=== PATIENT | male | born 1985 | race Caucasian/White ===

== ENCOUNTER 2016-05-18 20:44 | Emergency (ER) | payer OTHER ==
[~2016-05-18] VITALS: Ht 180.3 cm; Wt 148.2 kg
[~2016-05-18 20:44] MED LIST: ACET-1256 PO; [UNRECOGNIZED DRUG - CODE] PO
[2016-05-18 20:57] VITALS: Ht 180.3 cm; Wt 148.2 kg
[2016-05-18] MEDS ORDERED: ACETAMINOPHEN 500 MG TAB PO STA (21:34)
[2016-05-18] MEDS ORDERED: IBUPROFEN 800 MG TAB PO STA (23:02)
[2016-05-18] MEDS ORDERED: IBUPROFEN 200 MG TAB ONE (23:08)
[2016-05-18] MEDS ORDERED: IBUPROFEN 600 MG TAB ONE (23:09)
[2016-05-19 00:21] VITALS: BP 108/72; PULSE 97; TEMP 37.6; O2SAT 97
[2016-05-19 01:06] LABS: INFLUENZA A PCR Neg for Influ A (NEG); INFLUENZA B PCR Neg for Influ B (NEG)
--- NOTE | 2016-05-19 05:01 | EMERGENCY ROOM VISIT NOTE ---
History First contact with patient: 23:08 Chief Complaint: ILLNESS Stated Complaint: FEVER, VOMITING, CHILLS History of Present Illness The patient is a 30 year old male who presents to the Emergency Room with complaints of fever, chills, myalgias and arthralgias for the past day. He did receive the flu vaccine. He did not take anything for fever or cold symptoms. He is tolerating fluids. Patient denies chest pain, dyspnea, neck stiffness, sore throat, earache, abdominal pain, vomiting, diarrhea. Review of Systems See HPI for pertinent positives & negatives. A total of 10 systems reviewed and were otherwise negative. Past Medical/Surgical History Medical Problems: (1) HTN (hypertension) (2) Neutrophilic leukocytosis Social History Smoking Status: Never Smoker Alcohol Use: occasionally Drug Use: none Marital Status: Occupation Status: employed Current/Historical Medications No Active Prescriptions or Reported Meds Allergies Coded Allergies: No Known Allergies (Unverified , 05/18/16) Physical Exam Vital Signs Date Time Temp Pulse Resp B/P Pulse Ox O2 Delivery O2 Flow Rate FiO2 05/19/16 00:21 37.6 97 18 108/72 97 05/18/16 22:57 37.9 115 22 108/65 95 Room Air 05/18/16 21:31 126 05/18/16 20:57 39.4 129 20 97 Room Air Pain Rating (0-10): 0 Physical Exam VITALS: Vitals are noted on the nurse's note and reviewed by myself. Vital signs febrile GENERAL: Pleasant male mildly ill-appearing, in no acute distress, nondiaphoretic, well-developed well-nourished. SKIN: The skin was without rashes, erythema, edema, or bruising. There is no tenting of the skin. Capillary reflex less than 2 seconds. HEAD: Normocephalic atraumatic. EARS: External auditory canals clear, tympanic membranes pearly ragland without erythema or effusion bilaterally. EYES: Pupils equal round and reactive to light and accommodation. Conjunctivae without injection, sclerae without icterus. Extraocular movements intact. NOSE: Patent, turbinates without inflammation or discharge. No sinus tenderness. MOUTH: Mucous membranes mildly dry pharynx without erythema or exudate. Uvula midline. Airway patent. Tongue does not deviate. NECK: Supple without nuchal rigidity. No lymphadenopathy. No thyromegaly. Cervical spine is nontender. No JVD. No meningeal signs HEART: Regular rate and rhythm without murmurs gallops or rubs. LUNGS: Clear to auscultation bilaterally without wheezes, rales or rhonchi. No dullness to percussion. No retractions or accessory muscle use. ABDOMEN: Positive bowel sounds x 4. Normal tympanic percussion. Soft, nontender, without masses or organomegaly. Norton sign negative. No guarding or rebound tenderness. MUSCULOSKELETAL: No muscle atrophy, erythema, or edema noted. NEURO: Patient was alert and oriented to person place and time. Normal sensation to light and sharp touch. No focal neurological deficits. Medical Decision & Procedures Laboratory Results Test 05/18/16 23:19 Influenza Type A (RT-PCR) Neg for Influ A (NEG) Influenza Type A Antigen Neg for Influ A (NEG) Influenza Type B Antigen Neg for Influ B (NEG) Influenza Type B (RT-PCR) Neg for Influ B (NEG) Medications Administered Medications (Trade) Dose Ordered Sig/Leslee Route Start Time Stop Time Status Last Admin Dose Admin Acetaminophen (Tylenol Tab) 1,000 mg NOW STAT PO 05/18/16 21:34 05/18/16 21:38 DC 05/18/16 21:45 1,000 MG Ibuprofen (Advil Tab) 200 mg STK-MED ONCE .ROUTE 05/18/16 23:08 05/18/16 23:12 DC 05/18/16 23:17 200 MG Ibuprofen (Motrin Tab) 600 mg STK-MED ONCE .ROUTE 05/18/16 23:09 05/18/16 23:12 DC 05/18/16 23:17 600 MG ED Course Prior records/ancillary studies reviewed. Triage Nursing notes reviewed. Additional history obtained from family. The patient's history was concerning for fever. Differential diagnosis: Etiologies such as viral syndrome, otitis, pharyngitis, pneumonia, influenza, meningitis, urinary tract infection, sepsis, bacteremia, as well as others were entertained. Physical examination: Patient was alert with no signs of meningitis ER treatment provided: Tylenol, Motrin, po fluids On reassessment the patient felt better. Diagnostics interpreted by me: Negative flu This appears to be consistent with influenza. This could be false negative. Patient is well-appearing. No signs of meningitis. He was not coughing. He was tolerating fluids. He was advised to take Tylenol and Motrin as needed for fever reduction and cold medicines as directed. He was advised to follow-up family care in a few days or here in the ER sooner for high fevers, lethargy, neck stiffness, worsening signs or symptoms or as needed. He was advised to stay at home to use 24 hours fever free as he is highly contagious.. By the evaluation outlined above emergent etiologies such as otitis, pharyngitis, pneumonia, meningitis, urinary tract infection, sepsis, bacteremia, as well as others were deemed relatively unlikely. The pt informed about the findings as listed above. All questions were answered and pleased with the treatment. Return instructions were outlined and the patient was discharged in stable condition. Referral: The patient was referred back to their primary care physician for follow-up in 2 to 3 days for a recheck of the current condition. Medical Decision As above Impression Primary Impression: Influenza Departure Information Dispostion Home / Self-Care Condition GOOD Prescriptions No Active Prescriptions or Reported Meds Forms WORK / SCHOOL INSTRUCTIONS, HOME CARE DOCUMENTATION FORM, IMPORTANT VISIT INFORMATION Patient Instructions Fever - [facility], [facility] Additional Instructions Acetaminophen(Tylenol) may be used for fever or pain. Use 1000mg every six hours as needed. Avoid using more than 3000mg in a 24 hour period. (AND/OR) Ibuprofen(Motrin, Advil) may be used for fever or pain. Use 600mg every six hours as needed. Take with food. Avoid using more than 2400mg in a 24 hour period. Do not use 2400mg per day for more than three consecutive days without physician direction. Prolonged inappropriate use can lead to stomach upset or ulcers. Afrin nasal spray: 2-3 sprays to each nostril twice daily as needed for congestion. Do not use for more than 3-4 days because it can lead to worsening rebound congestion. Pseudoephedrine(Sudaphed): 30-60mg every 6 hours as needed for nasal congestion. Do not take this with other stimulant products or supplements. Albuterol Inhaler: Take 2 puffs four times daily for seven days, then as needed. Rest and drink plenty of fluids. Controlling your fever with Tylenol and Ibuprofen as above will make you feel better. Wash your hands after nose blowing, sneezing, or coughing. Most germs are spread through contact, therefore improper hygiene may result in your close contacts and loved ones becoming ill just like you. Continue current medications. Return to the ER for severe headache, neck stiffness, chest pain, difficulty breathing, fevers, vomiting, worsening of your condition, or as needed. Follow up with your primary physician this week for a recheck of your current condition.
== END 2016-05-19 00:21 | disposition home or self-care (01) ==
LOC: C.EDB 20:44 → C.EDA 05-19 00:21
DX: J11.1 Influenza due to unidentified influenza virus with other respiratory manifestations (principal); I10 Essential (primary) hypertension

== ENCOUNTER → 2016-05-21 | Outpatient (CLI) | payer OTHER ==
--- NOTE | 2016-05-21 14:02 | DIAGNOSTIC IMAGING REPORT ---
RIGHT THUMB 3 VIEWS HISTORY: THUMB PAIN RIGHT Right COMPARISON: None. FINDINGS: There is no fracture or dislocation. Soft tissue swelling at the base of the thumb. No radiopaque foreign bodies. IMPRESSION: No fractures. Electronically signed by: Julius Rader M.D. 05/21/2016 2:01 PM Dictated Date/Time: 05/21/2016 1:59 PM
== END | disposition home or self-care (01) ==
LOC: C.RAD 13:04
PROVIDERS: ATTEND Family Medicine
DX: M79.644 Pain in right finger(s) (principal)

== ENCOUNTER → 2016-12-12 | Outpatient (CLI) | payer OTHER ==
[2016-12-12 12:54] LABS: BLOOD UREA NITROGEN 9 mg/dl (7-18); BUN/CREATININE RATIO 9.6 (10-20); CALCIUM 9.2 mg/dl (8.5-10.1); CARBON DIOXIDE 28 mmol/L (21-32); CHLORIDE 106 mmol/L (98-107); CHOLESTEROL 129 mg/dl (0-200); CREATININE 0.94 mg/dl (0.60-1.40); GLUCOSE 87 mg/dl (70-99); POTASSIUM 3.9 mmol/L (3.5-5.1); SODIUM 140 mmol/L (136-145)
[2016-12-12 12:57] LABS: CHOLESTEROL/HDL RATIO 3.1; HDL CHOLESTEROL 42 mg/dl; LDL CHOLESTEROL CALCULATED 69 mg/dl; TRIGLYCERIDES 88 mg/dl (0-150); VERY LOW DENSITY LIPOPROT CALC 18 mg/dl
== END | disposition home or self-care (01) ==
LOC: C.LABBFT 07:45
PROVIDERS: ATTEND Internal Medicine
DX: Z13.6 Encounter for screening for cardiovascular disorders (principal); I10 Essential (primary) hypertension

== ENCOUNTER 2017-01-15 15:00 | Emergency (ER) | payer OTHER ==
[~2017-01-15] VITALS: Ht 180.3 cm; Wt 143.0 kg
[2017-01-15 15:06] VITALS: Ht 180.3 cm; Wt 143.0 kg
[2017-01-15] MEDS ORDERED: KETOROLAC TROMETHAMINE 30 MG/ML VIAL IV STA (16:01)
[2017-01-15] MEDS ORDERED: ACETAMINOPHEN 500 MG TAB PO STA (16:01)
[2017-01-15] MEDS ORDERED: SODIUM CHLORIDE 0.9% 1000ML 2,000 ML IV STA (16:01)
[2017-01-15 16:29] LABS: BASO % 0.3 %; BASO ABS # 0.04 K/uL (0-0.2); COMPLETE YES; HEMATOCRIT 39.3 % (42-52); IG% 0.4 %; LYMPH % 6.7 %; LYMPH ABS # 1.07 K/uL (1.2-3.4); MEAN CELL VOLUME 79.2 fL (80-100); MEAN CORPUSCULAR HEMOGLOBIN 27.6 pg (25-34); MEAN CORPUSCULAR HGB CONC 34.9 g/dl (32-36); MONO % 3.9 %; NEUT % 88.7 %; PLATELET COUNT 178 K/uL (130-400); RED BLOOD COUNT 4.96 M/uL (4.7-6.1); WHITE BLOOD COUNT 15.98 K/uL (4.8-10.8)
--- NOTE | 2017-01-15 16:30 | EMERGENCY ROOM VISIT NOTE ---
History Report prepared by Attila: Joseph Britton Under the Supervision of: Dr. Sharif Peters M.D. First contact with patient: 15:57 Chief Complaint: ILLNESS Stated Complaint: CHILLS, FEVER, FATIGUE, NAUSEA, DIZZY History of Present Illness The patient is a 31 year old male who presents to the Emergency Room with complaints of constant illness starting last night around 2100. The patient states that he had fevers, chills, congestion, cough, nausea, and body aches. He denies any vomiting, diarrhea, or brining up any sputum. The patient notes that he has not taken any medication for his symptoms, and he has not eaten anything, though he has been drinking water. The patient notes that he is not a smoker, and he has gotten his flu shot this year. The patient has a history of hypertension and sleep apnea. He denies any history of diabetes. Source of History: patient Onset: last night around 2100 Position: other (global) Quality: other (illness) Timing: constant Associated Symptoms: + fevers, + chills, + cough Note: Associated symptoms: congestion and body aches Review of Systems See HPI for pertinent positives and negatives. A total of ten systems were reviewed and were otherwise negative. Past Medical & Surgical Medical Problems: (1) HTN (hypertension) (2) Neutrophilic leukocytosis Social History Smoking Status: Never Smoker Alcohol Use: occasionally Drug Use: none Marital Status: Occupation Status: employed Current/Historical Medications Scheduled Losartan Potassium (Losartan Potassium), 50 MG PO QAM Phentermine HCl (Phentermine HCl), 15 MG PO QAM Scheduled PRN Ibuprofen Tab (Motrin), 800 MG PO Q8H PRN for Pain Allergies Coded Allergies: No Known Allergies (Unverified , 01/15/17) Physical Exam Vital Signs Date Time Temp Pulse Resp B/P (MAP) Pulse Ox O2 Delivery O2 Flow Rate FiO2 01/15/17 19:21 37.0 91 20 113/79 98 01/15/17 17:26 108 119/78 97 Room Air 01/15/17 17:09 110 01/15/17 15:06 39.4 128 20 137/87 97 Room Air Physical Exam GENERAL: Awake, alert, uncomfortable-appearing, in no distress HENT: Normocephalic, atraumatic. Boggy nasal turbinates bilaterally. No injection, edema, tongue elevation, or trismus in the posterior oropharynx. EYES: Normal conjunctiva. Sclera non-icteric. NECK: Supple. No nuchal rigidity. FROM. No JVD. RESPIRATORY: Clear to auscultation. CARDIAC: Regular rate, normal rhythm. Extremities warm and well perfused. Pulses equal. ABDOMEN: Obese, soft, non-distended. No tenderness to palpation. No rebound or guarding. No masses. RECTAL: Deferred. MUSCULOSKELETAL: Chest examination reveals no tenderness. The back is symmetrical on inspection without obvious abnormality. There is no CVA tenderness to palpation. No joint edema. LOWER EXTREMITIES: Calves are equal size bilaterally and non-tender. No edema. No discoloration. NEURO: Normal sensorium. No sensory or motor deficits noted. SKIN: No rash or jaundice noted. Medical Decision & Procedures ER Provider Diagnostic Interpretation: Radiology results as stated below per my review and radiologist interpretation: CHEST ONE VIEW PORTABLE CLINICAL HISTORY: Abdominal pain. Fever. COMPARISON STUDY: Chest radiograph November 12, 2015. FINDINGS: Lung volumes are normal. Lungs are clear. No pneumothorax or pleural effusion is present. Pulmonary vascularity is normal. Cardiomediastinal silhouette is normal. IMPRESSION: No acute cardiopulmonary findings. Electronically signed by: Pete Stanford M.D. 01/15/2017 4:57 PM Dictated Date/Time: 01/15/2017 4:57 PM Laboratory Results 01/15/17 16:15 Red Blood Count 4.96, Mean Corpuscular Volume 79.2, Mean Corpuscular Hemoglobin 27.6, Mean Corpuscular Hemoglobin Concent 34.9, Mean Platelet Volume 8.0, Neutrophils (%) (Auto) 88.7, Lymphocytes (%) (Auto) 6.7, Monocytes (%) (Auto) 3.9, Eosinophils (%) (Auto) 0.0, Basophils (%) (Auto) 0.3, Neutrophils # (Auto) 14.19, Lymphocytes # (Auto) 1.07, Monocytes # (Auto) 0.62, Eosinophils # (Auto) 0.00, Basophils # (Auto) 0.04 01/15/17 16:15 Test 01/15/17 16:15 01/15/17 17:30 White Blood Count 15.98 K/uL (4.8-10.8) Red Blood Count 4.96 M/uL (4.7-6.1) Hemoglobin 13.7 g/dL (14.0-18.0) Hematocrit 39.3 % (42-52) Mean Corpuscular Volume 79.2 fL (80-100) Mean Corpuscular Hemoglobin 27.6 pg (25-34) Mean Corpuscular Hemoglobin Concent 34.9 g/dl (32-36) Platelet Count 178 K/uL (130-400) Mean Platelet Volume 8.0 fL (7.4-10.4) Neutrophils (%) (Auto) 88.7 % Lymphocytes (%) (Auto) 6.7 % Monocytes (%) (Auto) 3.9 % Eosinophils (%) (Auto) 0.0 % Basophils (%) (Auto) 0.3 % Neutrophils # (Auto) 14.19 K/uL (1.4-6.5) Lymphocytes # (Auto) 1.07 K/uL (1.2-3.4) Monocytes # (Auto) 0.62 K/uL (0.11-0.59) Eosinophils # (Auto) 0.00 K/uL (0-0.5) Basophils # (Auto) 0.04 K/uL (0-0.2) RDW Standard Deviation 38.9 fL (36.4-46.3) RDW Coefficient of Variation 13.8 % (11.5-14.5) Immature Granulocyte % (Auto) 0.4 % Immature Granulocyte # (Auto) 0.06 K/uL (0.00-0.02) Anion Gap 8.0 mmol/L (3-11) Est Creatinine Clear Calc Drug Dose 118.8 ml/min Estimated GFR () 84.7 Estimated GFR (Non- 73.0 BUN/Creatinine Ratio 9.6 (10-20) Calcium Level 8.6 mg/dl (8.5-10.1) Total Bilirubin 1.3 mg/dl (0.2-1) Direct Bilirubin 0.2 mg/dl (0-0.2) Aspartate Amino Transf (AST/SGOT) 18 U/L (15-37) Alanine Aminotransferase (ALT/SGPT) 31 U/L (12-78) Alkaline Phosphatase 39 U/L (45-117) Total Protein 7.2 gm/dl (6.4-8.2) Albumin 3.8 gm/dl (3.4-5.0) Lipase 125 U/L (73-393) Urine Color YELLOW Urine Appearance CLEAR (CLEAR) Urine pH 7.5 (4.5-7.5) Urine Specific Thompson 1.010 (1.000-1.030) Urine Protein NEG (NEG) Urine Glucose (UA) NEG (NEG) Urine Ketones NEG (NEG) Urine Occult Blood NEG (NEG) Urine Nitrite NEG (NEG) Urine Bilirubin NEG (NEG) Urine Urobilinogen NEG (NEG) Urine Leukocyte Esterase NEG (NEG) Influenza Type A (RT-PCR) Neg for Influ A (NEG) Influenza Type A Antigen Neg for Influ A (NEG) Influenza Type B Antigen Neg for Influ B (NEG) Influenza Type B (RT-PCR) Neg for Influ B (NEG) Laboratory results reviewed by me Medications Administered Medications (Trade) Dose Ordered Sig/Leslee Route Start Time Stop Time Status Last Admin Dose Admin Ketorolac Tromethamine (Toradol Inj) 30 mg NOW STAT IV 01/15/17 16:01 01/15/17 16:07 DC 01/15/17 16:01 30 MG Acetaminophen (Tylenol Tab) 1,000 mg NOW STAT PO 01/15/17 16:01 01/15/17 16:07 DC 01/15/17 16:01 1,000 MG Sodium Chloride 2,000 ml @ 999 mls/hr Q2H1M STAT IV 01/15/17 16:01 01/15/17 18:01 DC 01/15/17 16:01 999 MLS/HR Sodium Chloride 1,000 ml @ 999 mls/hr Q1H1M STAT IV 01/15/17 17:44 01/15/17 18:44 DC 01/15/17 17:44 999 MLS/HR Albuterol (Ventolin Hfa Inhaler) 2 puffs NOW ONCE INH 01/15/17 19:15 01/15/17 19:16 DC 01/15/17 19:18 2 PUFFS ECG Indication: other (illness) Rate (beats per minute): 111 Rhythm: sinus tachycardia Findings: no acute ischemic change, other (Normal axis) ED Course 1557: The patient was evaluated in room B9. A complete history and physical exam was performed. 1601: Sodium Chloride 2000 ml @ 999 mls/hr IV, Tylenol Tab 1000mg PO, Toradol 30mg IV 1744: Sodium Chloride 1000 ml @ 999 mls/hr IV 1909: I reevaluated the patient. Discussed results and discharge instructions: He verbalized understanding and agreement. The patient is ready for discharge. 1914: Albuterol 2 puffs INH Medical Decision I reviewed the patient's past medical history, medications, and the nursing notes as described above. Differential diagnoses include: viral URI, pneumonia, bronchitis, dehydration, and electrolyte abnormality. The patient is a 31-year-old gentleman with a past medical history of hypertension who presents emergency Department with cough and congestion and body aches since last night but has not taken any medication. History of present illness. Arrival the patient appears uncomfortable but in no acute distress. Afebrile with heart rate in the 120s but otherwise stable vital signs. +nasal congestion. Clinically dry appearing. Heart rate improved to the 80s after IV fluids. Otherwise WBC elevated to 15, nonspecific. CXR clear. Labs otherwise unremarkable. Patient will follow up with his PCP in the next couple of days. Given MDI for anti-tussive effect. Findings and plan for follow- up reviewed with patient. Patient agreeable and d/c'd per discharge instructions. Medication Reconcilliation Current Medication List: was personally reviewed by me Blood Pressure Screening Patient's blood pressure: Normal blood pressure Impression Primary Impression: Upper respiratory infection Scribe Attestation The scribe's documentation has been prepared under my direction and personally reviewed by me in its entirety. I confirm that the note above accurately reflects all work, treatment, procedures, and medical decision making performed by me. Departure Information Dispostion Home / Self-Care Prescriptions Ibuprofen Tab (MOTRIN) 800 Mg Tab 800 MG PO Q8H Y for Pain, #30 TAB Prov: Sharif Peters M.D. 01/15/17 Referrals Johnathan Rudd M.D. (PCP) Forms HOME CARE DOCUMENTATION FORM, IMPORTANT VISIT INFORMATION, WORK / SCHOOL INSTRUCTIONS Patient Instructions ED Upper Resp Infec No Abx Tx, My [facility] Additional Instructions Please follow up with your primary care physician in the next 1-3 days for re- evaluation. You likely have an upper respiratory infection, the majority of which are viral. Otherwise, your exam, EKG, chest xray, and lab results did not show signs of an emergent condition at this time. Take ibuprofen and acetaminophen for pain fevers as needed. Albuterol inhaler 2 puffs every 4 hours for cough and wheezing as needed. Drink plenty of fluids to ensure hydration. Return to the emergency department for worsening symptoms as described in the accompanying instructions.
[2017-01-15] MEDS ORDERED: PHT15 PO (16:40)
[2017-01-15] MEDS ORDERED: CZR50 PO (16:40)
[2017-01-15 16:55] LABS: BUN/CREATININE RATIO 9.6 (10-20); CALCIUM 8.6 mg/dl (8.5-10.1); CREATININE 1.28 mg/dl (0.60-1.40); POTASSIUM 3.9 mmol/L (3.5-5.1)
--- NOTE | 2017-01-15 16:59 | DIAGNOSTIC IMAGING REPORT ---
CHEST ONE VIEW PORTABLE CLINICAL HISTORY: Abdominal pain. Fever. COMPARISON STUDY: Chest radiograph November 12, 2015. FINDINGS: Lung volumes are normal. Lungs are clear. No pneumothorax or pleural effusion is present. Pulmonary vascularity is normal. Cardiomediastinal silhouette is normal. IMPRESSION: No acute cardiopulmonary findings. Electronically signed by: Pete Stanford M.D. 01/15/2017 4:57 PM Dictated Date/Time: 01/15/2017 4:57 PM
[2017-01-15 17:42] LABS: URINE APPEARANCE CLEAR (CLEAR); URINE BILIRUBIN NEG (NEG); URINE COLOR YELLOW; URINE NITRITE NEG (NEG); URINE PH 7.5 (4.5-7.5); UROBILINOGEN NEG (NEG); ZZUR CULT IF INDIC CLEAN CATCH NO
[2017-01-15 17:43] LABS: MANUAL MICROSCOPIC REQUIRED? NO; REVIEW REQ? NO
[2017-01-15] MEDS ORDERED: SODIUM CHLORIDE 0.9% 1000ML 1,000 ML IV STA (17:44)
[2017-01-15 18:52] LABS: INFLUENZA A PCR Neg for Influ A (NEG); INFLUENZA B PCR Neg for Influ B (NEG)
[2017-01-15] MEDS ORDERED: IBUP-1451 PO (19:09)
[2017-01-15] MEDS ORDERED: ALBUTEROL HFA 8 GM INHALER INH ONE (19:15)
[2017-01-15 19:21] VITALS: BP 113/79; PULSE 91; TEMP 37; O2SAT 98
== END 2017-01-15 19:22 | disposition home or self-care (01) ==
LOC: C.EDB 15:01
DX: J06.9 Acute upper respiratory infection, unspecified (principal); I10 Essential (primary) hypertension; G47.30 Sleep apnea, unspecified; R00.0 Tachycardia, unspecified

== ENCOUNTER 2017-01-17 11:30 | Inpatient (IN) | payer OTHER ==
[~2017-01-17] VITALS: Ht 180.3 cm; Wt 145.4 kg
[~2017-01-17 11:30] MED LIST changes: -ACET-1256 PO; +CZR50 PO; +IBUP-1451 PO; +PHT15 PO; -[UNRECOGNIZED DRUG - CODE] PO
[2017-01-17] MEDS ORDERED: CEFTRIAXONE SOD INJ 1 GM ADDVIAL IV STA (12:24)
--- NOTE | 2017-01-17 12:27 | EMERGENCY ROOM VISIT NOTE ---
History Report prepared by Attila: Juan Luis Powell Under the Supervision of: Dr. Erasmo Aguirre D.O. First contact with patient: 12:15 Chief Complaint: LEG PAIN,LEG INJURY Stated Complaint: SWELLING AND PAIN TO RT LEG History of Present Illness The patient is a 31 year old male who presents to the Emergency Room with complaints of right lower leg pain that began a couple of days ago. He has a history of sleep apnea, hypertension, and cellulitis to his right lower leg. The last time he had cellulitis to his leg, he was treated as an inpatient with IV antibiotics. Earlier this week, he began to not feel well with some dizziness , shortness of breath, and pain to his right leg, but he did not think anything of it. This morning, his pain has worsened which has made ambulating difficult. He denies any fevers or chills. However, he is experiencing nausea and vomiting. He denies any history of blood clots. Source of History: patient Onset: a couple of days ago Position: leg (right) Symptom Intensity: moderate Quality: ache Timing: constant Modifying Factors (Worsening): movement Associated Symptoms: + SOB, + nausea, + vomiting, No fevers, No chills Review of Systems See HPI for pertinent positives & negatives. A total of 10 systems reviewed and were otherwise negative. Past Medical & Surgical Medical Problems: (1) Cellulitis of right lower extremity (2) Cellulitis RLE (3) HTN (hypertension) (4) Neutrophilic leukocytosis Family History Patient reports no known family medical history. Social History Smoking Status: Never Smoker Alcohol Use: occasionally Drug Use: none Marital Status: Occupation Status: employed Current/Historical Medications Scheduled Losartan Potassium (Losartan Potassium), 50 MG PO QAM Phentermine HCl (Phentermine HCl), 15 MG PO QAM Scheduled PRN Albuterol Hfa (Ventolin Hfa), 2-4 PUFFS INH Q6H PRN for SOB/Wheezing Ibuprofen Tab (Motrin), 800 MG PO Q8H PRN for Pain Allergies Coded Allergies: No Known Allergies (Unverified , 01/17/17) Physical Exam Vital Signs Date Time Temp Pulse Resp B/P (MAP) Pulse Ox O2 Delivery O2 Flow Rate FiO2 01/17/17 15:45 93 16 125/70 98 Room Air 01/17/17 14:00 86 14 109/65 99 Room Air 01/17/17 12:57 99 Room Air 01/17/17 11:35 36.5 89 17 118/79 99 Room Air Physical Exam GENERAL: Patient is awake, alert, and in no acute distress. Patient is resting comfortably and showing no signs of anxiety EYES: The conjunctivae are clear. The pupils are round and reactive. EARS, NOSE, MOUTH AND THROAT: The nose is without any evidence of any deformity. Mucous membranes are moist tongue is midline NECK: The neck is nontender and supple. RESPIRATORY: Normal respiratory effort is noted there is no evidence of wheezing rhonchi or rales CARDIOVASCULAR: Regular rate and rhythm noted there no murmurs rubs or gallops normal S1 normal S2 GASTROINTESTINAL: The abdomen is soft. Bowel sounds are present in all quadrants. Abdomen is nontender MUSCULOSKELETAL/EXTREMITIES: There is no evidence of gross deformity full range of motion is noted in the hips and shoulders SKIN: There is significant symmetric swelling as well as erythema to the right lower extremity. Erythema involves the right leg that extends to the medial right leg. Pulses are symmetric. Skin is warm and dry. There are no petechiae, pallor or cyanosis noted. NEUROLOGIC: Patient is awake alert and oriented x3. Medical Decision & Procedures ER Provider Diagnostic Interpretation: Radiology results as stated below per my review and radiologist interpretation: CHEST ONE VIEW PORTABLE CLINICAL HISTORY: Sepsis RIGHT LEG PAIN AND SWELLING COMPARISON STUDY: 01/15/2017 FINDINGS: The cardiac and mediastinal contours are normal. There is no evidence of focal pulmonary consolidation. There is no evidence of failure. No pleural effusions are visualized.[ IMPRESSION: No active disease in the chest. Electronically signed by: Devon Cunningham M.D. 01/17/2017 12:41 PM Dictated Date/Time: 01/17/2017 12:40 PM ULTRASOUND R VENOUS DOPP LOWER EXT UNILAT CLINICAL HISTORY: Right leg swelling COMPARISON STUDY: 06/22/2015 FINDINGS: Real-time and color flow Doppler imaging were performed. Flow was seen within the femoral, popliteal and calf veins with no intraluminal thrombus demonstrated. The saphenous vein is patent. There is right lower extremity edema. There are multiple prominent groin nodes the largest of which measures 48 x 38 x 20 mm. IMPRESSION: 1. No evidence of right lower extremity DVT 2. Persistent mild right inguinal lymphadenopathy Electronically signed by: Devon Cunningham M.D. 01/17/2017 2:35 PM Dictated Date/Time: 01/17/2017 2:34 PM Laboratory Results Test 01/17/17 11:40 01/17/17 12:53 01/17/17 15:11 Immature Granulocyte % (Auto) 0.3 % White Blood Count 7.96 K/uL (4.8-10.8) Red Blood Count 4.71 M/uL (4.7-6.1) Hemoglobin 13.1 g/dL (14.0-18.0) Hematocrit 36.9 % (42-52) Mean Corpuscular Volume 78.3 fL (80-100) Mean Corpuscular Hemoglobin 27.8 pg (25-34) Mean Corpuscular Hemoglobin Concent 35.5 g/dl (32-36) Platelet Count 121 K/uL (130-400) Mean Platelet Volume 8.2 fL (7.4-10.4) Neutrophils (%) (Auto) 77.3 % Lymphocytes (%) (Auto) 17.0 % Monocytes (%) (Auto) 5.0 % Eosinophils (%) (Auto) 0.1 % Basophils (%) (Auto) 0.3 % Neutrophils # (Auto) 6.16 K/uL (1.4-6.5) Lymphocytes # (Auto) 1.35 K/uL (1.2-3.4) Monocytes # (Auto) 0.40 K/uL (0.11-0.59) Eosinophils # (Auto) 0.01 K/uL (0-0.5) Basophils # (Auto) 0.02 K/uL (0-0.2) Immature Granulocyte # (Auto) 0.02 K/uL (0.00-0.02) Erythrocyte Sedimentation Rate 31 mm/hr (0-14) Prothrombin Time 12.1 SECONDS (9.0-12.0) Prothromb Time International Ratio 1.1 (0.9-1.1) Activated Partial Thromboplast Time 39.7 SECONDS (21.0-31.0) Partial Thromboplastin Ratio 1.5 Magnesium Level 2.3 mg/dl (1.8-2.4) Total Bilirubin 0.8 mg/dl (0.2-1) Aspartate Amino Transf (AST/SGOT) 20 U/L (15-37) Alanine Aminotransferase (ALT/SGPT) 34 U/L (12-78) Alkaline Phosphatase 44 U/L (45-117) Total Creatine Kinase 131 U/L (39-308) Creatine Kinase MB < 0.5 ng/ml (0.5-3.6) Creatine Kinase MB Ratio (0-3.0) Troponin I < 0.015 ng/ml (0-0.045) C-Reactive Protein 18.00 mg/dl (0-0.29) Total Protein 7.5 gm/dl (6.4-8.2) Albumin 3.5 gm/dl (3.4-5.0) Globulin 4.0 gm/dl (2.5-4.0) Albumin/Globulin Ratio 0.9 (0.9-2) Bedside Lactic Acid Venous 0.87 mmol/L (0.90-1.70) Urine Color YELLOW Urine Appearance CLEAR (CLEAR) Urine pH 5.5 (4.5-7.5) Urine Specific [place] 1.014 (1.000-1.030) Urine Protein NEG (NEG) Urine Glucose (UA) NEG (NEG) Urine Ketones 1+ (NEG) Urine Occult Blood NEG (NEG) Urine Nitrite NEG (NEG) Urine Bilirubin NEG (NEG) Urine Urobilinogen NEG (NEG) Urine Leukocyte Esterase NEG (NEG) Urine WBC (Auto) 1-5 /hpf (0-5) Urine RBC (Auto) 0-4 /hpf (0-4) Urine Hyaline Casts (Auto) 1-5 /lpf (0-5) Urine Epithelial Cells (Auto) 10-20 /lpf (0-5) Urine Bacteria (Auto) NEG (NEG) Laboratory results per my review. Medications Administered Medications (Trade) Dose Ordered Sig/Leslee Route Start Time Stop Time Status Last Admin Dose Admin Ceftriaxone Sodium (Rocephin Inj) 1 gm NOW STAT IV 01/17/17 12:24 01/17/17 12:26 DC 01/17/17 14:04 1 GM ECG Indication: SOB/dyspnea Rate (beats per minute): 87 Rhythm: normal sinus Findings: no ectopy, other (No STS abnormalities) Comparison ECG Date: 01/15/17 Change: no significant change ED Course 1215: The patient was evaluated in room A11A. A complete history and physical examination were performed. 1224: Ordered Rocephin Inj 1 gm IV 1610: Upon reevaluation, the patient is resting. I discussed results and treatment plan with him. He verbalizes agreement and understanding. I spoke with Dr. Hernandez of the [facility]. The patient will be evaluated for further management and care. Medical Decision Differential diagnosis: Etiologies such as cellulitis, abscess, MRSA infection, DVT, necrotizing fasciitis, dermatitis, drug eruption, as well as others were entertained.. Nursing notes reviewed. The patient is a 31-year-old male who presented to the emergency department for evaluation of swelling in his right leg. The patient has a history of cellulitis. His history physical exam appeared to be consistent with a lower extremity cellulitis. Due to the degree of swelling and DVT was also ruled out. The patient was treated with IV antibiotic in emergency department. He was reevaluated multiple times. I discussed the patient's laboratory and radiographic studies with him. Given the degree of symptoms I also discussed his case with the on-call [facility] hospitalist group. They have agreed to evaluate the patient in the emergency department for further management and disposition. Medication Reconcilliation Current Medication List: was personally reviewed by me Blood Pressure Screening Patient's blood pressure: Normal blood pressure Blood pressure disposition: Did not require urgent referral Consults Time Called: 1605 Consulting Physician: Dr. Hernandez - [facility] Returned Call: [id number] I discussed the patient's case with him. The patient will be evaluated for further management. Impression Primary Impression: Cellulitis of right lower extremity Scribe Attestation The scribe's documentation has been prepared under my direction and personally reviewed by me in its entirety. I confirm that the note above accurately reflects all work, treatment, procedures, and medical decision making performed by me. Departure Information Dispostion Being Evaluated By Hospitalist Referrals Johnathan Rudd M.D. (PCP) Patient Instructions My [facility]
--- NOTE | 2017-01-17 12:42 | DIAGNOSTIC IMAGING REPORT ---
CHEST ONE VIEW PORTABLE CLINICAL HISTORY: Sepsis RIGHT LEG PAIN AND SWELLING COMPARISON STUDY: 01/15/2017 FINDINGS: The cardiac and mediastinal contours are normal. There is no evidence of focal pulmonary consolidation. There is no evidence of failure. No pleural effusions are visualized.[ IMPRESSION: No active disease in the chest. Electronically signed by: Devon Cunningham M.D. 01/17/2017 12:41 PM Dictated Date/Time: 01/17/2017 12:40 PM
[2017-01-17 13:01] LABS: BASO % 0.3 %; BASO ABS # 0.02 K/uL (0-0.2); COMPLETE YES; EOS % 0.1 %; HEMATOCRIT 36.9 % (42-52); IG% 0.3 %; LYMPH ABS # 1.35 K/uL (1.2-3.4); MEAN CELL VOLUME 78.3 fL (80-100); MEAN CORPUSCULAR HEMOGLOBIN 27.8 pg (25-34); MEAN CORPUSCULAR HGB CONC 35.5 g/dl (32-36); MEAN PLATELET VOLUME 8.2 fL (7.4-10.4); NEUT % 77.3 %; PLATELET COUNT 121 K/uL (130-400); RED BLOOD COUNT 4.71 M/uL (4.7-6.1); WHITE BLOOD COUNT 7.96 K/uL (4.8-10.8)
[2017-01-17 13:12] LABS: INR 1.1 (0.9-1.1); PARTIAL THROMBOPLASTIN RATIO 1.5; PROTHROMBIN TIME (PATIENT) 12.1 SECONDS (9.0-12.0)
[2017-01-17] MEDS ORDERED: VNTHFA/IN INH (13:13)
[2017-01-17 13:18] LABS: ALT/SGPT 34 U/L (12-78); AST/SGOT 20 U/L (15-37); BLOOD UREA NITROGEN 9 mg/dl (7-18); BUN/CREATININE RATIO 8.7 (10-20); CALCIUM 8.5 mg/dl (8.5-10.1); CARBON DIOXIDE 24 mmol/L (21-32); CHLORIDE 102 mmol/L (98-107); CREATININE 1.07 mg/dl (0.60-1.40); GLUCOSE 95 mg/dl (70-99); MAGNESIUM 2.3 mg/dl (1.8-2.4); POTASSIUM 3.4 mmol/L (3.5-5.1); SODIUM 134 mmol/L (136-145)
[2017-01-17 13:22] LABS: ALB/GLOB RATIO 0.9 (0.9-2); ALKALINE PHOSPHATASE 44 U/L (45-117)
--- NOTE | 2017-01-17 14:37 | DIAGNOSTIC IMAGING REPORT ---
ULTRASOUND R VENOUS DOPP LOWER EXT UNILAT CLINICAL HISTORY: Right leg swelling COMPARISON STUDY: 06/22/2015 FINDINGS: Real-time and color flow Doppler imaging were performed. Flow was seen within the femoral, popliteal and calf veins with no intraluminal thrombus demonstrated. The saphenous vein is patent. There is right lower extremity edema. There are multiple prominent groin nodes the largest of which measures 48 x 38 x 20 mm. IMPRESSION: 1. No evidence of right lower extremity DVT 2. Persistent mild right inguinal lymphadenopathy Electronically signed by: Devon Cunningham M.D. 01/17/2017 2:35 PM Dictated Date/Time: 01/17/2017 2:34 PM
[2017-01-17 15:25] LABS: URINE APPEARANCE CLEAR (CLEAR); URINE BILIRUBIN NEG (NEG); URINE COLOR YELLOW; URINE NITRITE NEG (NEG); URINE PH 5.5 (4.5-7.5); URINE SPECIFIC GRAVITY 1.014 (1.000-1.030); UROBILINOGEN NEG (NEG); ZZUR CULT IF INDIC CLEAN CATCH NO
[2017-01-17 15:27] LABS: MANUAL MICROSCOPIC REQUIRED? NO; REVIEW REQ? NO
[2017-01-17] MEDS ORDERED: ACETAMINOPHEN 325 MG TAB PO PRN (16:45)
[2017-01-17] MEDS ORDERED: ONDANSETRON INJ 2 MG/ML 2 ML VIAL IV PRN (16:45)
--- NOTE | 2017-01-17 16:45 | History and Physical ---
History & Physical Date & Time of Service: Jan 17, 2017 at 16:40 Chief Complaint: Swelling And Pain To Rt Leg Primary Care Physician: Johnathan Rudd M.D. History of Present Illness Source: patient 31-year-old male who is in the ER earlier this week for upper respiratory infection and at that time was brewing some redness to her right his right lower extremity the patient now has progressive erythema to his right lower extremity which initially began on the lateral aspect of his sore anterior tibialis area now the erythema extends to his sock line but does not go to the foot done then extends to his groin he has minor very small right inguinal lymphadenopathy he has no pain to dorsi flexion and has no loss of sensation or tingling to his foot to be concerned about compartment syndrome he denies trauma to this area he denies any abrasions any puncture wounds he is not a known diabetic patient he does have a similar episode of this approximately a year ago of which she failed outpatient Keflex and then eventually required inpatient admission and home on Bactrim 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 Social History Smoking Status: Never Smoker Smokeless Tobacco Use: No Alcohol Use: socially Drug Use: none Marital Status: Housing status: lives with family Occupational Status: employed Immunizations History of Influenza Vaccine: No History of Tetanus Vaccine?: Yes History of Pneumococcal: No History of Hepatitis B Vaccine: Yes Multi-Drug Resistant Organisms History of MDRO: No Allergies Coded Allergies: No Known Allergies (Unverified , 01/17/17) Home Medications Scheduled Losartan Potassium (Losartan Potassium), 50 MG PO QAM Phentermine HCl (Phentermine HCl), 15 MG PO QAM Scheduled PRN Albuterol Hfa (Ventolin Hfa), 2-4 PUFFS INH Q6H PRN for SOB/Wheezing Ibuprofen Tab (Motrin), 800 MG PO Q8H PRN for Pain Review of Systems ROS: well nourished well developed No double vision blurry vision No problems with speech or swallowing No palpitations, chest pain or pressure Mild Wheezing which has improved since inhaler use but no other breathing issues No abdominal pain nausea vomiting diarrhea changes in appetite or weight No burning urine urine frequency or changes in color No focal joint pain but does have some muscle pain to his right lower extremity Erythema and some non-blanchable redness to his leg which extends to his groin No focused back pain or numbness or loss of strength No changes in memory or confusion Physical Exam Vital Signs Date Time Temp Pulse Resp B/P (MAP) Pulse Ox O2 Delivery O2 Flow Rate FiO2 01/17/17 15:45 93 16 125/70 98 Room Air 01/17/17 14:00 86 14 109/65 99 Room Air 01/17/17 12:57 99 Room Air 01/17/17 11:35 36.5 89 17 118/79 99 Room Air General Appearance: WD/WN, + obese Head: normocephalic, atraumatic Eyes: PERRL, EOMI Neck: supple, no JVD Respiratory/Chest: chest non-tender, lungs clear, normal breath sounds Cardiovascular: regular rate, rhythm, no murmur Abdomen/GI: normal bowel sounds, non tender, soft Back: normal inspection, no CVA tenderness, no muscle spasm Extremities/Musculoskelatal: + pedal edema, + pertinent finding (marked erythema from his lower leg on the right to his groin not involving his foot) Neurologic/Psych: alert, oriented x 3 Skin: normal color, warm/dry Diagnostics Laboratory Results Results Past 24 Hours Test 01/17/17 11:40 01/17/17 15:11 Range/Units White Blood Count 7.96 4.8-10.8 K/uL Red Blood Count 4.71 4.7-6.1 M/uL Hemoglobin 13.1 14.0-18.0 g/dL Hematocrit 36.9 42-52 % Mean Corpuscular Volume 78.3 80-100 fL Mean Corpuscular Hemoglobin 27.8 25-34 pg Mean Corpuscular Hemoglobin Concent 35.5 32-36 g/dl Platelet Count 121 130-400 K/uL Mean Platelet Volume 8.2 7.4-10.4 fL Neutrophils (%) (Auto) 77.3 % Lymphocytes (%) (Auto) 17.0 % Monocytes (%) (Auto) 5.0 % Eosinophils (%) (Auto) 0.1 % Basophils (%) (Auto) 0.3 % Neutrophils # (Auto) 6.16 1.4-6.5 K/uL Lymphocytes # (Auto) 1.35 1.2-3.4 K/uL Monocytes # (Auto) 0.40 0.11-0.59 K/uL Eosinophils # (Auto) 0.01 0-0.5 K/uL Basophils # (Auto) 0.02 0-0.2 K/uL RDW Standard Deviation 39.6 36.4-46.3 fL RDW Coefficient of Variation 13.8 11.5-14.5 % Immature Granulocyte % (Auto) 0.3 % Immature Granulocyte # (Auto) 0.02 0.00-0.02 K/uL Erythrocyte Sedimentation Rate 31 0-14 mm/hr Prothrombin Time 12.1 9.0-12.0 SECONDS Prothromb Time International Ratio 1.1 0.9-1.1 Activated Partial Thromboplast Time 39.7 21.0-31.0 SECONDS Partial Thromboplastin Ratio 1.5 Sodium Level 134 136-145 mmol/L Potassium Level 3.4 3.5-5.1 mmol/L Chloride Level 102 98-107 mmol/L Carbon Dioxide Level 24 21-32 mmol/L Anion Gap 8.0 3-11 mmol/L Blood Urea Nitrogen 9 7-18 mg/dl Creatinine 1.07 0.60-1.40 mg/dl Est Creatinine Clear Calc Drug Dose 143.5 ml/min Estimated GFR () 105.2 Estimated GFR (Non- 90.7 BUN/Creatinine Ratio 8.7 10-20 Random Glucose 95 70-99 mg/dl Calcium Level 8.5 8.5-10.1 mg/dl Magnesium Level 2.3 1.8-2.4 mg/dl Total Bilirubin 0.8 0.2-1 mg/dl Aspartate Amino Transf (AST/SGOT) 20 15-37 U/L Alanine Aminotransferase (ALT/SGPT) 34 12-78 U/L Alkaline Phosphatase 44 45-117 U/L Total Creatine Kinase 131 39-308 U/L Creatine Kinase MB < 0.5 0.5-3.6 ng/ml Creatine Kinase MB Ratio 0-3.0 Troponin I < 0.015 0-0.045 ng/ml C-Reactive Protein 18.00 0-0.29 mg/dl Total Protein 7.5 6.4-8.2 gm/dl Albumin 3.5 3.4-5.0 gm/dl Globulin 4.0 2.5-4.0 gm/dl Albumin/Globulin Ratio 0.9 0.9-2 Urine Color YELLOW Urine Appearance CLEAR CLEAR Urine pH 5.5 4.5-7.5 Urine Specific [place] 1.014 1.000-1.030 Urine Protein NEG NEG Urine Glucose (UA) NEG NEG Urine Ketones 1+ NEG Urine Occult Blood NEG NEG Urine Nitrite NEG NEG Urine Bilirubin NEG NEG Urine Urobilinogen NEG NEG Urine Leukocyte Esterase NEG NEG Urine WBC (Auto) 1-5 0-5 /hpf Urine RBC (Auto) 0-4 0-4 /hpf Urine Hyaline Casts (Auto) 1-5 0-5 /lpf Urine Epithelial Cells (Auto) 10-20 0-5 /lpf Urine Bacteria (Auto) NEG NEG Microbiology Results 01/17/17 Blood Culture, Received Pending 01/17/17 Blood Culture, Received Pending Diagnostic Radiology Right lower trimming Doppler negative for DVT, hypokalemia at 3.4 no significant leukocytosis elevation of his sedimentation rate is noted Impression Assessment and Plan 31-year-old male with recurrent right lower external cellulitis which is progressed fairly significantly over the last few days Patient is given Rocephin in the ER and this well be continued with a dose of vancomycin 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 Y/N: Yes Risk Level: Moderate
[2017-01-17] MEDS ORDERED: VANCOMYCIN CONSULT ACTIVE PRN (17:00)
[2017-01-17] MEDS ORDERED: VANCOMYCIN INJ 2,750 MG in SODIUM CHLORIDE 0.9% 500ML 500 ML IV ONE (17:15)
[2017-01-17 17:30] VITALS: BP 152/80; PULSE 98; TEMP 37.5; O2SAT 98
[2017-01-17 17:42] VITALS: O2SAT 96; Ht 180.3 cm; Wt 145.4 kg
[2017-01-17] MEDS: OXYCODONE HCL IR 5 MG TAB (IMMEDIATE RELEASE) PO PRN (17:59)
[2017-01-17] MEDS: POTASSIUM CHLORIDE 20 MEQ TABCR PO SCH (19:41)
[2017-01-17] MEDS: ENOXAPARIN 40 MG/0.4 ML SYR SQ SCH (19:43)
[2017-01-17] MEDS ORDERED: IV FLUIDS COMPLETED PRN (19:45)
--- NOTE | 2017-01-17 21:11 | Pharmacy Progress Note ---
Pharmacy Antibiotic Consult Date of Service: Jan 17, 2017. Pharmacy Dosing Scope Pharmacy is consulted to initiate vancomycin IV dosing therapy, order appropriate labs and adjust drug dose/frequency. Subjective The patient is a 31 year old male admitted on Jan 17, 2017 at 16:39. Objective Height (Feet): 5 Height (Inches): 11.00 Weight (Kilograms): 145.400 Lab Results (24hrs): Test 01/17/17 11:40 01/17/17 15:11 White Blood Count 7.96 K/uL (4.8-10.8) Red Blood Count 4.71 M/uL (4.7-6.1) Hemoglobin 13.1 g/dL (14.0-18.0) Hematocrit 36.9 % (42-52) Mean Corpuscular Volume 78.3 fL (80-100) Mean Corpuscular Hemoglobin 27.8 pg (25-34) Mean Corpuscular Hemoglobin Concent 35.5 g/dl (32-36) Platelet Count 121 K/uL (130-400) Mean Platelet Volume 8.2 fL (7.4-10.4) Neutrophils (%) (Auto) 77.3 % Lymphocytes (%) (Auto) 17.0 % Monocytes (%) (Auto) 5.0 % Eosinophils (%) (Auto) 0.1 % Basophils (%) (Auto) 0.3 % Neutrophils # (Auto) 6.16 K/uL (1.4-6.5) Lymphocytes # (Auto) 1.35 K/uL (1.2-3.4) Monocytes # (Auto) 0.40 K/uL (0.11-0.59) Eosinophils # (Auto) 0.01 K/uL (0-0.5) Basophils # (Auto) 0.02 K/uL (0-0.2) RDW Standard Deviation 39.6 fL (36.4-46.3) RDW Coefficient of Variation 13.8 % (11.5-14.5) Immature Granulocyte % (Auto) 0.3 % Immature Granulocyte # (Auto) 0.02 K/uL (0.00-0.02) Erythrocyte Sedimentation Rate 31 mm/hr (0-14) Prothrombin Time 12.1 SECONDS (9.0-12.0) Prothromb Time International Ratio 1.1 (0.9-1.1) Activated Partial Thromboplast Time 39.7 SECONDS (21.0-31.0) Partial Thromboplastin Ratio 1.5 Sodium Level 134 mmol/L (136-145) Potassium Level 3.4 mmol/L (3.5-5.1) Chloride Level 102 mmol/L (98-107) Carbon Dioxide Level 24 mmol/L (21-32) Anion Gap 8.0 mmol/L (3-11) Blood Urea Nitrogen 9 mg/dl (7-18) Creatinine 1.07 mg/dl (0.60-1.40) Est Creatinine Clear Calc Drug Dose 143.5 ml/min Estimated GFR () 105.2 Estimated GFR (Non- 90.7 BUN/Creatinine Ratio 8.7 (10-20) Random Glucose 95 mg/dl (70-99) Calcium Level 8.5 mg/dl (8.5-10.1) Magnesium Level 2.3 mg/dl (1.8-2.4) Total Bilirubin 0.8 mg/dl (0.2-1) Aspartate Amino Transf (AST/SGOT) 20 U/L (15-37) Alanine Aminotransferase (ALT/SGPT) 34 U/L (12-78) Alkaline Phosphatase 44 U/L (45-117) Total Creatine Kinase 131 U/L (39-308) Creatine Kinase MB < 0.5 ng/ml (0.5-3.6) Creatine Kinase MB Ratio (0-3.0) Troponin I < 0.015 ng/ml (0-0.045) C-Reactive Protein 18.00 mg/dl (0-0.29) Total Protein 7.5 gm/dl (6.4-8.2) Albumin 3.5 gm/dl (3.4-5.0) Globulin 4.0 gm/dl (2.5-4.0) Albumin/Globulin Ratio 0.9 (0.9-2) Urine Color YELLOW Urine Appearance CLEAR (CLEAR) Urine pH 5.5 (4.5-7.5) Urine Specific [place] 1.014 (1.000-1.030) Urine Protein NEG (NEG) Urine Glucose (UA) NEG (NEG) Urine Ketones 1+ (NEG) Urine Occult Blood NEG (NEG) Urine Nitrite NEG (NEG) Urine Bilirubin NEG (NEG) Urine Urobilinogen NEG (NEG) Urine Leukocyte Esterase NEG (NEG) Urine WBC (Auto) 1-5 /hpf (0-5) Urine RBC (Auto) 0-4 /hpf (0-4) Urine Hyaline Casts (Auto) 1-5 /lpf (0-5) Urine Epithelial Cells (Auto) 10-20 /lpf (0-5) Urine Bacteria (Auto) NEG (NEG) Assessment & Plan Patient started on vancomycin and rocephin for lower extremity cellulitis. BC x 2 are pending. Vancomycin: * Vancomycin 2750 mg x 1 (~19 mg/kg) x 1 * Will start MD of vancomycin 1750 mg (~12 mg/kg) iv q 12 hrs to achieve an estimated trough ~15 mcg/ml (goal 10-15 mcg/ml for cellulitis) * Estimated kinetics: t1/2~ 8 hrs, ke~0.08 hr-1, CrCl>100 ml/min (used max 100ml /min to calculate kinetics) * Will obtain a trough prior to the 0400 dose on 01/19 to ensure therapeutic ( note BMI>35 kg/m2 therefore trough will be before steady state to ensure patient not accumulating vancomycin too quickly) Pharmacy will continue to follow and will adjust dose/frequency as necessary. Thank you
[2017-01-17 23:45] VITALS: BP 104/63; PULSE 101; TEMP 39.4; O2SAT 100
[2017-01-18] MEDS: OXYCODONE HCL IR 5 MG TAB (IMMEDIATE RELEASE) PO PRN ×2 (02:19→07:56)
[2017-01-18] MEDS: VANCOMYCIN INJ 1,750 MG in SODIUM CHLORIDE 0.9% 500ML 500 ML IV SCH ×2 (04:47→15:31)
[2017-01-18 05:43] LABS: HEMATOCRIT 34.8 % (42-52); MEAN CORPUSCULAR HEMOGLOBIN 27.1 pg (25-34); MEAN CORPUSCULAR HGB CONC 33.9 g/dl (32-36); MEAN PLATELET VOLUME 8.2 fL (7.4-10.4); PLATELET COUNT 118 K/uL (130-400); RED BLOOD COUNT 4.35 M/uL (4.7-6.1); WHITE BLOOD COUNT 7.97 K/uL (4.8-10.8)
[2017-01-18 06:10] LABS: ESTIMATED AVERAGE GLUCOSE 105 mg/dl; HA1C FLAG Normal (Normal)
[2017-01-18 06:22] LABS: BUN/CREATININE RATIO 8.8 (10-20); CALCIUM 8.2 mg/dl (8.5-10.1); CREATININE 1.04 mg/dl (0.60-1.40); POTASSIUM 3.7 mmol/L (3.5-5.1)
[2017-01-18 07:23] VITALS: BP 122/76; PULSE 95; TEMP 38.1; O2SAT 99
[2017-01-18 07:52] VITALS: TEMP 37.8
[2017-01-18] MEDS: POTASSIUM CHLORIDE 20 MEQ TABCR PO SCH ×2 (07:56→20:48)
[2017-01-18] MEDS: LOSARTAN POTASSIUM 50 MG TAB PO SCH (07:56)
[2017-01-18 12:38] VITALS: TEMP 37.7
--- NOTE | 2017-01-18 13:53 | Hospitalist Progress Note ---
Hospitalist Progress Note Date of Service Jan 18, 2017. (Zuly Whitaker ., RIC-C) Subjective Pt evaluation today including: conversation w/ patient, physical exam, chart review, lab review, review of inpatient medication list Pain: 4/10 sharp RLE pain PO Intake: Tolerating PO diet Voiding: no voiding problems Patient reports feeling better. The pain in his RLE has improved to a 4/10 sharp pain located mostly in the right lateral lower leg and around the knee. The states it is easier to bear weight on his leg today. He does complain of intermittent numbness in his right foot. He also complains of RLE swelling. Overnight the patient had fevers, chills, and sweats. The patient also complains of a non-productive cough, stating that he is recovering from bronchitis. The patient denies chest pain, palpitations, claudication, wheezing , shortness of breath, nausea, vomiting, abdominal pain, dysuria, hematuria, urinary retention, paralysis, weakness. Additional Comments: See HPI for pertinent positives and negatives. All other systems reviewed and negative. (Zuly Whitaker ., RIC-C) Objective Vital Signs Date Time Temp Pulse Resp B/P (MAP) Pulse Ox O2 Delivery O2 Flow Rate FiO2 01/18/17 12:38 37.7 01/18/17 08:00 Room Air 01/18/17 07:52 37.8 01/18/17 07:23 38.1 95 18 122/76 (91) 99 Room Air 01/18/17 00:00 Room Air 01/17/17 23:45 39.4 101 20 104/63 (77) 100 Room Air 01/17/17 20:00 Room Air 01/17/17 17:42 96 Room Air 01/17/17 17:30 37.5 98 20 152/80 (104) 98 Room Air 01/17/17 17:22 36.5 97 16 148/81 96 01/17/17 16:52 97 16 148/81 96 Room Air 01/17/17 15:45 93 16 125/70 98 Room Air 01/17/17 14:00 86 14 109/65 99 Room Air (Zuly Whitaker ., RIC-C) Physical Exam Notes: General appearance: +Morbidly obese. Well-developed, well-nourished, no apparent distress Head: Normocephalic, atraumatic Eyes: Normal inspection, PERRL, EOMI ENT: Normal ENT inspection, hearing grossly normal, pharynx normal Neck: Supple, no JVD, trachea midline Respiratory/Chest: Lungs clear to auscultation, normal breath sounds, no respiratory distress Cardiovascular: Regular rate & rhythm, no gallop, no murmur Abdomen/GI: Normal bowel sounds, non-tender, soft Extremities/Musculoskeletal: +Confluent erythema right lower leg from knee to ankle, worse on lateral aspect. Intermittent erythema above knee to groin, which is improved (yesterday erythema was confluent from groin to ankle per admitting physician). RLE TTP. 1+ pitting edema. Neurological/Psych: Alert, normal mood/affect, oriented x 3 Skin: +Erythema as above. Warm/dry, no rash (Zuly Whitaker, RENATAC) Laboratory Results Last 24 Hours Test 01/17/17 15:11 01/18/17 05:15 Urine Color YELLOW Urine Appearance CLEAR Urine pH 5.5 Urine Specific [place] 1.014 Urine Protein NEG Urine Glucose (UA) NEG Urine Ketones 1+ Urine Occult Blood NEG Urine Nitrite NEG Urine Bilirubin NEG Urine Urobilinogen NEG Urine Leukocyte Esterase NEG Urine WBC (Auto) 1-5 /hpf Urine RBC (Auto) 0-4 /hpf Urine Hyaline Casts (Auto) 1-5 /lpf Urine Epithelial Cells (Auto) 10-20 /lpf Urine Bacteria (Auto) NEG White Blood Count 7.97 K/uL Red Blood Count 4.35 M/uL Hemoglobin 11.8 g/dL Hematocrit 34.8 % Mean Corpuscular Volume 80.0 fL Mean Corpuscular Hemoglobin 27.1 pg Mean Corpuscular Hemoglobin Concent 33.9 g/dl RDW Standard Deviation 41.2 fL RDW Coefficient of Variation 14.3 % Platelet Count 118 K/uL Mean Platelet Volume 8.2 fL Sodium Level 135 mmol/L Potassium Level 3.7 mmol/L Chloride Level 99 mmol/L Carbon Dioxide Level 27 mmol/L Anion Gap 8.0 mmol/L Blood Urea Nitrogen 9 mg/dl Creatinine 1.04 mg/dl Est Creatinine Clear Calc Drug Dose 147.6 ml/min Estimated GFR () 108.8 Estimated GFR (Non- 93.9 BUN/Creatinine Ratio 8.8 Random Glucose 94 mg/dl Estimated Average Glucose 105 mg/dl Hemoglobin A1c 5.3 % Calcium Level 8.2 mg/dl (Zuly Whitaker ., PA-C) Assessment and Plan 31 y/o male with recurrent right lower extremity erythema, edema and tenderness RLE cellulitis--improving -Admit to med/surg -Febrile overnight, resolving -Blood cultures pending -Continue Rocephin 1 gm IV qd and vancomycin IV -Continue oxycodone 10 mg PO q6h prn pain Right inguinal lymphadenopathy -Doppler ultrasound RLE shows right inguinal LAD. This had also been demonstrated on RLE Doppler ultrasound on 06/24/15. Pt had also had RLE cellulitis at that time -Unclear if 2 separate incidences of reactive LAD secondary to cellulitis or has been persistent this whole time -Recommend patient follow up on this with PCP after cellulitis resolves to see if LAD still persists. If remains, may require biopsy due to concern for lymphoma HTN--stable -Continue losartan 50 mg PO qd Hypokalemia--resolved -Potassium 3.7 on 01/18 DVT prophylaxis -Enoxaparin 40 mg SC q24h Code Status -Level I, FULL RESUSCITATION STATUS (Zuly Whitaker ., RENATAC) Reviewed: Pt Seen/Exam by Me (Vannesa Berman, ) History Pt feels that his LE pain and swelling is somewhat improved, but no change in the redness. He states that he had redness up into his thigh and that it was a splotchy appearance the same as it is today. Tolerating PO without issue. No chest pain or SOB. Agree with HPI/ROS as noted. (Vannesa Berman, DO) General Appearance: no apparent distress, obese Respiratory: normal breath sounds, no respiratory distress Cardiovascular: regular rate, rhythm, no edema Gastrointestinal: non tender, soft Extremities: swelling, other (redness noted with splotchy appearance on thigh, lateral calf with large red abscess, lines drawn today) Neurologic/Psychiatric: alert, oriented x 3 Skin Characteristics: normal color, warm/dry (Vannesa Berman, DO) Assessment/Plan Agree with plan as outlined above R LE cellulitis, hx of same last year States no improvement in redness--including splotchy appearance on thigh that he notes specifically was present on admission Pain and swelling are improved however Advised that if this worsens, he should alert nursing LE US neg for DVT Blood cx pending [place] (Vannesa Berman, DO)
[2017-01-18] MEDS ORDERED: CEFTRIAXONE SOD INJ 1 GM in DEXTROSE 5% ADD-VANTAGE 50ML 50 ML IV SCH (14:00)
[2017-01-18 14:44] VITALS: BP 147/74; PULSE 102; TEMP 37.1; O2SAT 98
[2017-01-18] MEDS: ENOXAPARIN 40 MG/0.4 ML SYR SQ SCH (20:49)
[2017-01-19] VITALS (7 sets, daily range): BP systolic 101–142; BP diastolic 61–70; PULSE 85–118; TEMP 36.7–37.4; O2SAT 96–98
[2017-01-19] MEDS ORDERED: VANCOMYCIN TROUGH ONE (03:30)
[2017-01-19] MEDS: VANCOMYCIN INJ 1,750 MG in SODIUM CHLORIDE 0.9% 500ML 500 ML IV SCH (03:44)
[2017-01-19 04:09] LABS: HEMATOCRIT 35.4 % (42-52); MEAN CELL VOLUME 79.9 fL (80-100); MEAN CORPUSCULAR HEMOGLOBIN 27.1 pg (25-34); MEAN CORPUSCULAR HGB CONC 33.9 g/dl (32-36); MEAN PLATELET VOLUME 8.4 fL (7.4-10.4); PLATELET COUNT 163 K/uL (130-400); RED BLOOD COUNT 4.43 M/uL (4.7-6.1); WHITE BLOOD COUNT 8.87 K/uL (4.8-10.8)
[2017-01-19 04:27] LABS: CALCIUM 8.2 mg/dl (8.5-10.1); CREATININE 0.96 mg/dl (0.60-1.40); POTASSIUM 3.9 mmol/L (3.5-5.1)
[2017-01-19] MEDS: LOSARTAN POTASSIUM 50 MG TAB PO SCH (07:29)
[2017-01-19 09:32] LABS: FERRITIN 523.9 ng/ml (8.0-388.0)
--- NOTE | 2017-01-19 12:18 | Hospitalist Progress Note ---
Hospitalist Progress Note Date of Service Jan 19, 2017. (Stefany Armstrong PA-C) Subjective Pt evaluation today including: conversation w/ patient, physical exam, chart review, lab review, review of studies Pain: R lower leg PO Intake: Good Voiding: no voiding problems The patient was seen and examined this morning. Pt reports his leg is less painful to walk on today compared to yesterday, and still swollen overall. He is unsure if the redness is much better, but seems to be not as bright red. He has been sweating but thinks its because his room is warm. He denies fevers or chills. Pt has been doing well otherwise. Constitutional: No fever, No chills, No sweats, No fatigue Eyes: No redness ENT: No nasal symptoms, No sore throat, No tinnitus Respiratory: No cough, No sputum, No wheezing Cardiovascular: No chest pain, No edema, No palpitations Abdomen: No pain, No nausea, No vomiting, No diarrhea Musculoskeletal: No joint pain, No muscle pain, No swelling Neurologic: No weakness, No numbness/tingling Psychiatric: No depression symptoms, No anxiety Endo: No fatigue Skin: No rash, No itch (Stefany Armstrong PA-C) Objective Vital Signs Date Time Temp Pulse Resp B/P (MAP) Pulse Ox O2 Delivery O2 Flow Rate FiO2 01/19/17 08:00 96 Room Air 01/19/17 07:05 37.0 90 18 125/70 (88) 96 Room Air 01/19/17 00:10 37.4 103 20 142/69 (93) 98 Room Air 01/19/17 00:00 98 Room Air 01/18/17 20:01 Room Air 01/18/17 16:00 Room Air 01/18/17 14:44 37.1 102 18 147/74 (98) 98 Room Air 01/18/17 12:38 37.7 (Stefany Armstrong PA-C) Physical Exam General Appearance: WD/WN, no apparent distress, + obese Eyes: PERRL, EOMI ENT: hearing grossly normal, pharynx normal Neck: supple, no JVD Respiratory/Chest: chest non-tender, lungs clear, no respiratory distress, no accessory muscle use, + pertinent finding (on room air) Cardiovascular: regular rate, rhythm, no murmur Abdomen: normal bowel sounds, non tender, soft Extremities: non-tender, no pedal edema, no calf tenderness (RLE with edema from toes to hip, intermittent areas of erythema which is dull on the upper thigh. Area over lower lateral leg and appears like bullous hematoma, raised, nonblanching. ), + pertinent finding Neurologic/Psychiatric: alert, oriented x 3 Skin: normal color, warm/dry (Stefany Armstrong PA-C) Laboratory Results Last 24 Hours Test 01/19/17 03:35 White Blood Count 8.87 K/uL Red Blood Count 4.43 M/uL Hemoglobin 12.0 g/dL Hematocrit 35.4 % Mean Corpuscular Volume 79.9 fL Mean Corpuscular Hemoglobin 27.1 pg Mean Corpuscular Hemoglobin Concent 33.9 g/dl RDW Standard Deviation 40.9 fL RDW Coefficient of Variation 14.0 % Platelet Count 163 K/uL Mean Platelet Volume 8.4 fL Sodium Level 132 mmol/L Potassium Level 3.9 mmol/L Chloride Level 99 mmol/L Carbon Dioxide Level 30 mmol/L Anion Gap 3.0 mmol/L Blood Urea Nitrogen 9 mg/dl Creatinine 0.96 mg/dl Est Creatinine Clear Calc Drug Dose 159.9 ml/min Estimated GFR () 119.9 Estimated GFR (Non- 103.4 BUN/Creatinine Ratio 9.0 Random Glucose 115 mg/dl Calcium Level 8.2 mg/dl Iron Level 18 mcg/dl Total Iron Binding Capacity 243 mcg/dl Transferrin 185 mg/dl Transferrin % Saturation 7 % Ferritin 523.9 ng/ml Vancomycin Level Trough 4.4 mcg/ml (Stefany Armstrong PA-C) Assessment and Plan 31 y/o male with recurrent right lower extremity erythema, edema and tenderness RLE cellulitis--improving - Admit to med/surg - Afebrile overnight but pt still feels he has some chills and sweats, but denies feeling feverish - Blood cultures pending - Will increase Rocephin to 2 gm IV qd and vancomycin IV - day #3 - Continue oxycodone 10 mg PO q6h prn pain - Checking CT of the RLE with concerns of hemorrhagic bullae and concern for deep tissue infection in the RLE. Will check the whole leg with involvement of cellulitis. - General surgery consulted for concerns of infection and possible needs for I&D /intervention. Right inguinal lymphadenopathy - Doppler ultrasound RLE shows right inguinal LAD. This had also been demonstrated on RLE Doppler ultrasound on 06/24/15. Pt had also had RLE cellulitis at that time - Unclear if 2 separate incidences of reactive LAD secondary to cellulitis or has been persistent this whole time - Recommend patient follow up on this with PCP after cellulitis resolves to see if LAD still persists. If remains, may require biopsy due to concern for lymphoma Dizziness - Pt reports worsening dizziness with standing and that this has been going on since last Saturday. - Will check orthostatics on him today. - Possible from cellulitis involvement. Iron panel checked - Ferritin elevated, iron =18, TiBC 243, Transferrin 185, Trans sat % = 7, ferritin =523.9 and likely elevated due to an acute phase reactant. - Will guiac all stools - although pt report BM occurs every 2 days normally HTN--stable - Continue losartan 50 mg PO qd Hypokalemia--resolved - Potassium 3.9 DVT ppx: Enoxaparin 40 mg SC q24h Code Status: FULL Disposition: From home, discharge unknown (Stefany Armstrong PA-C) Reviewed: Pt Seen/Exam by Me (Josselyn Joseph MD) History Physician Pediatric Lpn Supervision Note: I interviewed and examined the patient. Discussed with RIC Armstrong and agree with findings and plan as documented in the note. Any exceptions or clarifications are listed here: Pt reports pain in RLE, not much improvement in erythema. Had low grade temps yesterday but no further fever. BCXs remain no growth. There is a developing bullous large area on Rt leg. Pt denies CP or SOB, is still coughing a bit from his previous bronchitis. Has occasional red blood, small amount, in stool, occasional heartburn. Is mildly anemic, microcytic, no h/o anemia that he is aware of. Vitals reviewed Morbidly obese, NAD, pleasant RRR no mgr CTAB no wcr Abs + BS soft NT ND Ext/Skin: RLE with extensive erythema encompassing entire right legt with lateral leg with approx 10 cm oval bullous that is darkly erythematous, tender to touch, also with extensive erythema covering entire anterior thigh and medial thigh up into groin; bilateral upper thighs with multiple areas of hyperpigmented scars around hair follicles, and a few tiny 1 mm pustules/ folliculitis on left upper thigh 2+ DP pulses bilat, feet bilat with cracked and peeling skin between toes and crevices on plantar surfaces 31 yo male with a h/o morbid obesity, JAMAL on CPAP, previous cellulitis, HTN, here with RLE cellulitis and now with concern for RLE abscess formation. Doppler neg on admission for DVT. Had fevers, BCxs remain no growth, no leukocytosis, not septic. -increase Rocephin to 2 gms IV qday, continue Vanco -check MRSA nasal swab -check CT leg for deeper soft tissue infection, look for abscess -Consult Gen Surgery to see about debridement need-concern for possible underlying abscess right leg -Order CPAP for tonight Documented By: Josselyn Joseph (Josselyn Joseph MD)
[2017-01-19] MEDS: VANCOMYCIN INJ 2,250 MG in SODIUM CHLORIDE 0.9% 500ML 500 ML IV SCH ×2 (12:21→19:37)
--- NOTE | 2017-01-19 13:05 | Pharmacy Progress Note ---
Pharmacy Abx Dose Progress Nt Date of Service Jan 19, 2017. Pharmacy Dosing Scope The patient was receiving the following antimicrobial agents per Pharmacy consult: Vancomycin 1750 mg IV every 12 hours. Order changed based on trough level. Objective Height (Feet): 5 Height (Inches): 11.00 Weight (Kilograms): 145.400 Vital Signs (Past 12Hrs) Vital Signs Past 12 Hours Date Time Temp Pulse Resp B/P (MAP) Pulse Ox O2 Delivery O2 Flow Rate FiO2 01/19/17 08:00 96 Room Air 01/19/17 07:05 37.0 90 18 125/70 (88) 96 Room Air Lab Results (24Hrs) Laboratory Tests (24 Hours) Test 01/19/17 03:35 White Blood Count 8.87 K/uL (4.8-10.8) Micro Results Date/Time Source Procedure Growth Status 01/17/17 13:50 Blood Blood Culture - Preliminary NO GROWTH TO DATE. Resulted 01/17/17 11:40 Blood Blood Culture - Preliminary NO GROWTH TO DATE. 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 Assessment & Plan Assessment 31 year old male receiving Vancomycin for treatment of lower extremity cellulitis. Day # 3/10 of antimicrobial therapy Plan Vancomycin IV * Was on Vancomycin 1750 mg IV q12h. * Trough level of 4.4 mcg/mL is subtherapeutic. * Changed to Vancomycin 2250 mg IV every 8 hours * Goal trough level for Cellulitis: ~15 mcg/mL * Trough level ordered for: 01/20 at 1130 (before dose at 1200). Pharmacy will continue to follow and will adjust dose/frequency as necessary. Thank you.
[2017-01-19] MEDS ORDERED: OPTIRAY 320 IV PRN (14:15)
--- NOTE | 2017-01-19 15:32 | DIAGNOSTIC IMAGING REPORT ---
CT RIGHT LEG WITH CONTRAST CT DOSE: 1450.75 mGy.cm CLINICAL HISTORY: Cellulitis. Evaluate for deep soft tissue abscess. TECHNIQUE: The patient was scanned in a dynamic helical fashion during intravenous administration of 117 cc of Optiray 320. Sagittal and coronal reformatted imaging was performed. A dose lowering technique was utilized adhering to the principles of ALARA. COMPARISON STUDY: Venous Doppler ultrasound the right lower extremity dated 01/17/2017 FINDINGS: There is right inguinal lymphadenopathy, with nodes measuring up to 2 cm in short axis. There is skin thickening most pronounced in the lower leg. There is stranding within the subcutaneous fat. The findings are consistent with the clinical history of cellulitis. No air is visualized within the soft tissues. There are no fluid collections to indicate a soft tissue abscess. Mild edema within the anterior lateral calf musculature cannot be excluded. This with be better assessed with an MRI scan. No destructive skeletal lesions are visualized. IMPRESSION: 1. Right lower extremity edema and skin thickening consistent with the clinical history of cellulitis 2. No evidence of osteomyelitis 3. No evidence of deep soft tissue abscess 4. Right inguinal lymphadenopathy Electronically signed by: Devon Cunningham M.D. 01/19/2017 3:31 PM Dictated Date/Time: 01/19/2017 3:26 PM
--- NOTE | 2017-01-19 15:56 | Pre-Operative Consultation ---
History General Date of Service: Jan 19, 2017. Stated Complaint: cellulitis right lower extremity HPI HPI: The patient is a 31 year old male being seen at the request of Dr. Josselyn Joseph for consideration of debridement right lower extremity. He presented to the ER with recurrent right lower extremity cellulitis. Denied any trauma or bug bite to the area. Noticed swelling, erythema, pain with ambulation which extended from ankle to near groin. Mainly along anterior and lateral leg. He has been on IV abx with some improvement (less erythema, less pain with bearing weight). However, this progress has been slow and he has been noted to have a hemorrhagic bullae along the anterolateral mid to upper aspect of the leg. Asked to see if drainage would help. He has just returned from CT scan. Historian: patient Risk Assessment Daily beta stephani use?: No Problem List Medical Problems: (1) Cellulitis of right leg Status: Acute (2) Cellulitis of right lower extremity Status: Acute (3) Dizziness Status: Acute (4) Influenza Status: Acute (5) Upper respiratory infection Status: Acute (6) Viral syndrome Status: Acute hypertension Medical & Surgical History Past Medical History: hypertension Past Surgical History: tonsillectomy Family History Family History: diabetes, heart disease, hypertension, renal disease Social History Hx Tobacco Use In Past Year?: No Smoking Status: Never Smoker Alcohol: occasionally Drug Use: none Marital status: Housing status: lives with family Occupation status: employed Immunizations Have You Had Influenza Vaccine: No Have You Had Tetanus Vaccine: Yes History of Pneumococcal: No History Hepatitis B Vaccine: Yes Allergies Allergies: Coded Allergies: No Known Allergies (Unverified , 01/17/17) Medications Current Inpatient Medications Current Inpatient Medications Medications (Trade) Dose Ordered Sig/Leslee Route Start Time Stop Time Status Last Admin Dose Admin Losartan Potassium (coZAAR TAB) 50 mg QAM PO 01/18/17 08:00 02/17/17 08:59 01/19/17 07:29 50 MG Enoxaparin Sodium (Lovenox Inj) 40 mg Q24H SQ 01/17/17 20:00 02/16/17 19:59 01/18/17 20:49 40 MG Acetaminophen (Tylenol Tab) 650 mg Q4H PRN PO 01/17/17 16:45 02/16/17 16:44 01/17/17 23:28 650 MG Ondansetron HCl (Zofran Inj) 4 mg Q6H PRN IV 01/17/17 16:45 02/16/17 16:44 Vancomycin HCl (Consult) 1 ea UD PRN N/A 01/17/17 17:00 02/16/17 16:59 Oxycodone HCl (Roxicodone Immediate Rel Tab) 10 mg Q6 PRN PO 01/17/17 16:45 01/31/17 16:44 01/18/17 07:56 10 MG Miscellaneous (Iv Fluids Completed) 1 ea PRN PRN N/A 01/17/17 19:45 01/17/18 19:44 Vancomycin HCl 2250 mg/Sodium Chloride 545 ml @ 200 mls/hr Q8H IV 01/19/17 12:00 01/28/17 03:59 01/19/17 12:21 200 MLS/HR Ioversol (Optiray 320) 125 ml UD PRN IV 01/19/17 14:15 01/23/17 14:14 Ceftriaxone Sodium 2000 mg/ Dextrose 70 ml @ 100 mls/hr Q24H IV 01/19/17 16:00 01/29/17 15:59 Review of Systems Review of Systems Eyes: reports: no symptoms ENT: reports: no symptoms reported Cardiovascular: reports: no symptoms reported Respiratory: reports: no symptoms reported Gastrointestinal: no symptoms reported Genitourinary - Male: reports: no symptoms Musculoskeletal: other (pain with ambulation) Integumentary: other (cellulitis) Neurologic: reports: no symptoms Psychiatric: reports: no symptoms Endocrine: no symptoms Hematologic / Lymphatic: other (enlarged nodes right groin) Physical Exam Physical Exam General Appearance: + WD/WN, No distress Ears, Nose, Throat: + normal ENT inspection Respiratory: No accessory muscle use Cardiovascular: No abnormal rate Extremities: + other (RLE with edema, erythema which appears to be receding from lines drawn, near 6 cm hemorrhagic bullae anterolat upper leg, no abscess seen), No edema (left side ) Neurologic/Psychiatric: No decreased LOC Diagnostics Labs Labs Results Past 24 Hours Test 01/19/17 03:35 Range/Units White Blood Count 8.87 4.8-10.8 K/uL Red Blood Count 4.43 4.7-6.1 M/uL Hemoglobin 12.0 14.0-18.0 g/dL Hematocrit 35.4 42-52 % Mean Corpuscular Volume 79.9 80-100 fL Mean Corpuscular Hemoglobin 27.1 25-34 pg Mean Corpuscular Hemoglobin Concent 33.9 32-36 g/dl RDW Standard Deviation 40.9 36.4-46.3 fL RDW Coefficient of Variation 14.0 11.5-14.5 % Platelet Count 163 130-400 K/uL Mean Platelet Volume 8.4 7.4-10.4 fL Sodium Level 132 136-145 mmol/L Potassium Level 3.9 3.5-5.1 mmol/L Chloride Level 99 98-107 mmol/L Carbon Dioxide Level 30 21-32 mmol/L Anion Gap 3.0 3-11 mmol/L Blood Urea Nitrogen 9 7-18 mg/dl Creatinine 0.96 0.60-1.40 mg/dl Est Creatinine Clear Calc Drug Dose 159.9 ml/min Estimated GFR () 119.9 Estimated GFR (Non- 103.4 BUN/Creatinine Ratio 9.0 10-20 Random Glucose 115 70-99 mg/dl Calcium Level 8.2 8.5-10.1 mg/dl Iron Level 18 35-175 mcg/dl Total Iron Binding Capacity 243 250-450 mcg/dl Transferrin 185 200-360 mg/dl Transferrin % Saturation 7 20-50 % Ferritin 523.9 8.0-388.0 ng/ml Vancomycin Level Trough 4.4 SEE COMMENT mcg/ml Microbiology Results 01/19/17 MRSA DNA Surveillance Screen, Received Pending Lab Interpretation Lab Interpretation: labs were reviewed Diagnostic Radiology Diagnostic Radiology CT scan reviewed and shows evidence of cellulitis but no drainable fluid or abscess. Impression Assessment and Plan Assessment and Plan 31 yr old man with right lower extremity cellulitis complicated by edema/ obesity. This does appear to be responding, albeit slowly. No evidence of abscess or drainable fluid. I do not think that draining the hemorrhagic bullae will make much of a difference, but this does remain an alternative if needed. Discussed this with pt - for now, will hold off on drainage given CT findings.
[2017-01-19] MEDS: CEFTRIAXONE SOD INJ 2,000 MG in DEXTROSE 5% 50ML 50 ML IV SCH (16:37)
[2017-01-19] MEDS: ENOXAPARIN 40 MG/0.4 ML SYR SQ SCH (19:37)
[2017-01-20] VITALS (7 sets, daily range): BP systolic 112–133; BP diastolic 69–74; PULSE 74–91; TEMP 37–37.2; O2SAT 95–99
[2017-01-20] MEDS: VANCOMYCIN INJ 2,250 MG in SODIUM CHLORIDE 0.9% 500ML 500 ML IV SCH ×3 (04:24→20:41)
[2017-01-20 06:52] LABS: HEMATOCRIT 31.4 % (42-52); MEAN CELL VOLUME 80.5 fL (80-100); MEAN CORPUSCULAR HEMOGLOBIN 26.9 pg (25-34); MEAN CORPUSCULAR HGB CONC 33.4 g/dl (32-36); MEAN PLATELET VOLUME 8.2 fL (7.4-10.4); PLATELET COUNT 163 K/uL (130-400); WHITE BLOOD COUNT 7.67 K/uL (4.8-10.8)
[2017-01-20 07:23] LABS: BUN/CREATININE RATIO 11.6 (10-20); CREATININE 0.65 mg/dl (0.60-1.40); POTASSIUM 3.7 mmol/L (3.5-5.1)
[2017-01-20] MEDS: LOSARTAN POTASSIUM 50 MG TAB PO SCH (07:38)
--- NOTE | 2017-01-20 08:22 | Hospitalist Progress Note ---
Hospitalist Progress Note Date of Service Jan 20, 2017. (Stefany Armstrong PA-C) Subjective Pt evaluation today including: conversation w/ patient, physical exam, chart review, lab review, review of studies Pain: None PO Intake: Good Voiding: no voiding problems Pt reports his pain is much improved today compared to yesterday. He is unable to walk without any pain or discomfort whereas yesterday still had pain with ambulation. He reports the swelling in the redness seems to be improved as well. Patient denies any fevers, chills or sweats. He denies any other acute complaints. Patient is tolerating oral intake without any difficulty. Additional Comments: Constitutional: No fever, sweats or chills Eyes: No diplopia, no worsening or blurred vision ENT: normal hearing, no trouble swallowing Respiratory: No cough, sputum, dyspnea at rest or on exertion Cardiovascular: No chest pain, tightness or palpitations Abdomen: No pain, nausea, vomiting, diarrhea or constipation Musculoskeletal: See history of present illness Neurologic: No weakness, numbness/tingling, or balance problems Psychiatric: No anxiety or depression Skin: No rash or itch (Stefany Armstrong PA-C) Objective Vital Signs Date Time Temp Pulse Resp B/P (MAP) Pulse Ox O2 Delivery O2 Flow Rate FiO2 01/20/17 07:57 78 113/72 (86) 01/20/17 07:56 78 116/74 (88) 01/20/17 07:56 37.1 78 18 112/70 (84) 98 Room Air 01/20/17 01:05 84 96 01/19/17 23:49 Room Air 01/19/17 22:56 36.7 85 18 101/63 (76) 98 Room Air 01/19/17 20:00 Room Air 01/19/17 16:00 Room Air 01/19/17 15:39 101 108/66 (80) 01/19/17 15:39 118 118/64 (82) 01/19/17 15:38 37.0 99 18 112/61 (78) 97 Room Air (Stefany Armstrong PA-C) Physical Exam Notes: General: awake, alert, no apparent distress Head: Normocephalic, atraumatic ENT: PERRL, EOMI, no pharyngeal exudate, mucous membranes moist Chest: Clear to auscultation, on room air, no adventitious breath sounds Cardiac: Regular rate and rhythm, no murmur, no JVD, normal peripheral pulses, good capillary refill Abdominal: NABS x 4 quadrants, soft, nontender to palpation, no rebound, guarding or tenderness Extremities: (RLE with edema from toes to hip, intermittent areas of erythema which is dull on the lower part of the leg, no longer erythematous on the upper thigh. Area over lower lateral leg and appears like bullous hematoma, raised, nonblanching, area appears to have extended somewhat compared to yesterday. Somewhat tender to palpation )Normal inspection, no peripheral edema or erythema , calfs nontender to palpation Psych: Normal mood and affect Neuro: AAO x 3, speech is clear, no peripheral sensory deficits (Stefany Armstrong PA-C) Laboratory Results Last 24 Hours Test 01/20/17 05:52 White Blood Count 7.67 K/uL Red Blood Count 3.90 M/uL Hemoglobin 10.5 g/dL Hematocrit 31.4 % Mean Corpuscular Volume 80.5 fL Mean Corpuscular Hemoglobin 26.9 pg Mean Corpuscular Hemoglobin Concent 33.4 g/dl RDW Standard Deviation 41.4 fL RDW Coefficient of Variation 14.2 % Platelet Count 163 K/uL Mean Platelet Volume 8.2 fL Sodium Level 138 mmol/L Potassium Level 3.7 mmol/L Chloride Level 104 mmol/L Carbon Dioxide Level 27 mmol/L Anion Gap 7.0 mmol/L Blood Urea Nitrogen 8 mg/dl Creatinine 0.65 mg/dl Est Creatinine Clear Calc Drug Dose 236.2 ml/min Estimated GFR () 148.2 Estimated GFR (Non- 127.8 BUN/Creatinine Ratio 11.6 Random Glucose 112 mg/dl Calcium Level 8.0 mg/dl (Stefany Armstrong PA-C) Assessment and Plan 31 y/o male with recurrent right lower extremity erythema, edema and tenderness RLE cellulitis--improving - Afebrile overnight - patient denies uterus chills or sweats - Blood cultures pending - NGTD prelim -Continue Rocephin to 2 gm IV qd and vancomycin IV - day #4 - Continue oxycodone 10 mg PO q6h prn pain - CT of the RLE with concerns of hemorrhagic bullae and concern for deep tissue infection in the RLE. IMPRESSION: 1. Right lower extremity edema and skin thickening consistent with the clinical history of cellulitis 2. No evidence of osteomyelitis 3. No evidence of deep soft tissue abscess 4. Right inguinal lymphadenopathy - General surgery consulted - appreciate recs, no current indications for I&D/ intervention. Right inguinal lymphadenopathy - Doppler ultrasound RLE shows right inguinal LAD. This had also been demonstrated on RLE Doppler ultrasound on 06/24/15. Pt had also had RLE cellulitis at that time - Unclear if 2 separate incidences of reactive LAD secondary to cellulitis or has been persistent this whole time - Recommend patient follow up on this with PCP after cellulitis resolves to see if LAD still persists. If remains, may require biopsy due to concern for lymphoma Dizziness - Pt reports dizziness has improved today - Orthostatics negative - Possible from cellulitis involvement Iron panel checked - Ferritin elevated, iron =18, TiBC 243, Transferrin 185, Trans sat % = 7, ferritin =523.9 and likely elevated due to an acute phase reactant. - guaiac was negative - start iron supplementation HTN--stable - Continue losartan 50 mg PO qd Hypokalemia--resolved - Potassium 3.9 DVT ppx: Enoxaparin 40 mg SC q24h Code Status: FULL Disposition: From home, discharge unknown, possible in 1-2 days (Stefany Armstrong, SHARON) Reviewed: Pt Seen/Exam by Me (Josselyn Joseph MD) History Physician [employer] Director Supervision Note: I interviewed and examined the patient. Discussed with RIC Armstrong and agree with findings and plan as documented in the note. Any exceptions or clarifications are listed here: Improved pain today. Afebrile, no other complaints. No CP or SOB, no diarrhea, no other rash, no pruritus. Vitals reviewed Morbidly obese, NAD, pleasant RRR no mgr CTAB no wcr Abs + BS soft NT ND Ext/Skin: RLE with improving erythema encompassing entire right leg with lateral leg with approx 8 cm oval bullous that is darkly erythematous, tender to touch, also with extensive but improving patchy erythema covering entire anterior thigh and medial thigh up into groin all receding from previously drawn pen line; bilateral upper thighs with multiple areas of hyperpigmented scars around hair follicles, and a few tiny 1 mm pustules/folliculitis on left upper thigh 2+ DP pulses bilat, feet bilat with cracked and peeling skin between toes and crevices on plantar surfaces 31 yo male with a h/o morbid obesity, JAMAL on CPAP, previous cellulitis, HTN, here with RLE cellulitis and now with concern for RLE abscess formation. Doppler neg on admission for DVT. Had fevers, BCxs remain no growth, no leukocytosis, not septic. -increased Rocephin to 2 gms IV qday on 01/19, continue Vanco and now is at therapeutic trough as of 01/20--> initial poor response to abx may have been due to underdosing -recommend continuing IV abx for 1-2 more days and then transitioning to Bactrim DS bid to cover for MRSA and Strep as we have no culture results to base treatment on-MRSA swab negative but given healthcare exposure, I think still needs MRSA coverage -Consult Gen Surgery appreciated-no surgery needed at this time -continue CPAP for JAMAL Documented By: Josselyn Joseph (Josselyn Joseph MD)
--- NOTE | 2017-01-20 09:44 | Surgery Progress Note ---
Surgery Progress Note Date of Service Jan 20, 2017. Subjective Feels better. Less redness especially in thigh. Less pain. Has been elevating leg. Objective Vital Signs: Date Time Temp Pulse Resp B/P (MAP) Pulse Ox O2 Delivery O2 Flow Rate FiO2 01/20/17 08:00 98 Room Air 01/20/17 07:57 78 113/72 (86) 01/20/17 07:56 78 116/74 (88) 01/20/17 07:56 37.1 78 18 112/70 (84) 98 Room Air 01/20/17 01:05 84 96 01/19/17 23:49 Room Air 01/19/17 22:56 36.7 85 18 101/63 (76) 98 Room Air 01/19/17 20:00 Room Air 01/19/17 16:00 Room Air 01/19/17 15:39 101 108/66 (80) 01/19/17 15:39 118 118/64 (82) 01/19/17 15:38 37.0 99 18 112/61 (78) 97 Room Air General Appearance: WD/WN, no apparent distress Extremities: + pertinent finding (RLE with edema, hemorrhagic bullae laterally , less erythema (receding from lines), no abscess or fluctuance) Laboratory Results: Results Past 24 Hours Test 01/20/17 05:52 Range/Units White Blood Count 7.67 4.8-10.8 K/uL Red Blood Count 3.90 4.7-6.1 M/uL Hemoglobin 10.5 14.0-18.0 g/dL Hematocrit 31.4 42-52 % Mean Corpuscular Volume 80.5 80-100 fL Mean Corpuscular Hemoglobin 26.9 25-34 pg Mean Corpuscular Hemoglobin Concent 33.4 32-36 g/dl RDW Standard Deviation 41.4 36.4-46.3 fL RDW Coefficient of Variation 14.2 11.5-14.5 % Platelet Count 163 130-400 K/uL Mean Platelet Volume 8.2 7.4-10.4 fL Sodium Level 138 136-145 mmol/L Potassium Level 3.7 3.5-5.1 mmol/L Chloride Level 104 98-107 mmol/L Carbon Dioxide Level 27 21-32 mmol/L Anion Gap 7.0 3-11 mmol/L Blood Urea Nitrogen 8 7-18 mg/dl Creatinine 0.65 0.60-1.40 mg/dl Est Creatinine Clear Calc Drug Dose 236.2 ml/min Estimated GFR () 148.2 Estimated GFR (Non- 127.8 BUN/Creatinine Ratio 11.6 10-20 Random Glucose 112 70-99 mg/dl Calcium Level 8.0 8.5-10.1 mg/dl Microbiology Results 01/19/17 MRSA DNA Surveillance Screen - Final, Complete Specimen Negative for MRSA by DNA Probe Assessment & Plan 31 yr old man with recurrent right lower extremity cellulitis - slowly improving on IV abx. CT yesterday with no drainable fluid. Exam today is slightly better. Will sign off as I do not think there will be a benefit to surgical intervention at this time. Continue leg elevation, IV abx.
[2017-01-20] MEDS ORDERED: VANCOMYCIN TROUGH ONE (11:30)
--- NOTE | 2017-01-20 14:26 | Pharmacy Progress Note ---
Pharmacy Abx Dose Short Note Date of Service Jan 20, 2017. Assessment & Plan Assessment 31 year old male receiving Vancomycin for treatment of recurrent right lower extremity cellulitis. Day # 4 of antimicrobial therapy. Plan Vancomycin * Trough level of 15.5 mcg/mL is therapeutic. * Continue dose of Vancomycin 2250 mg IV every 8 hours. * Goal trough level for Cellulitis: 12 to 18 mcg/mL * Will re-check another trough level in 3 to 5 days if stable. Pharmacy will continue to follow and will adjust dose/frequency as necessary. Thank you.
[2017-01-20] MEDS: CEFTRIAXONE SOD INJ 2,000 MG in DEXTROSE 5% 50ML 50 ML IV SCH (16:54)
[2017-01-20] MEDS: ENOXAPARIN 40 MG/0.4 ML SYR SQ SCH (20:41)
[2017-01-21] MEDS: VANCOMYCIN INJ 2,250 MG in SODIUM CHLORIDE 0.9% 500ML 500 ML IV SCH ×3 (03:22→20:27)
[2017-01-21 07:18] VITALS: BP 106/65; PULSE 73; TEMP 36.6; O2SAT 100
[2017-01-21] MEDS: LOSARTAN POTASSIUM 50 MG TAB PO SCH (08:31)
--- NOTE | 2017-01-21 12:39 | Family Medicine Progress Note ---
Progress Note Date of Service Jan 21, 2017. Subjective Pt evaluation today including: conversation w/ patient, physical exam, chart review, lab review, review of studies Pain: Tenderness to palpation over right lower extremity bullae Voiding: no voiding problems, no incontinence She is resting comfortably in bed this morning with no acute complaints overnight. He is still experiencing tenderness over the bullae over the lower extremity. There has been significant improvement in the erythema over the right lower extremity. He denies any fevers, chills, or sweats overnight. Constitutional: No fever, No chills, No sweats Respiratory: No cough, No sputum, No wheezing Cardiovascular: No chest pain, No palpitations Abdomen: No pain, No nausea, No vomiting, No diarrhea Musculoskeletal: + swelling Neurologic: No paralysis, No weakness Skin: + problem reported (improvement of right lower extremity erythema, mild tenderness to palpation over the bullae) Medications Current Inpatient Medications Medications (Trade) Dose Ordered Sig/Leslee Route Start Time Stop Time Status Last Admin Dose Admin Losartan Potassium (coZAAR TAB) 50 mg QAM PO 01/18/17 08:00 02/17/17 08:59 01/21/17 08:31 50 MG Enoxaparin Sodium (Lovenox Inj) 40 mg Q24H SQ 01/17/17 20:00 02/16/17 19:59 01/20/17 20:41 40 MG Acetaminophen (Tylenol Tab) 650 mg Q4H PRN PO 01/17/17 16:45 02/16/17 16:44 01/17/17 23:28 650 MG Ondansetron HCl (Zofran Inj) 4 mg Q6H PRN IV 01/17/17 16:45 02/16/17 16:44 Vancomycin HCl (Consult) 1 ea UD PRN N/A 01/17/17 17:00 02/16/17 16:59 Oxycodone HCl (Roxicodone Immediate Rel Tab) 10 mg Q6 PRN PO 01/17/17 16:45 01/31/17 16:44 01/18/17 07:56 10 MG Miscellaneous (Iv Fluids Completed) 1 ea PRN PRN N/A 01/17/17 19:45 01/17/18 19:44 Vancomycin HCl 2250 mg/Sodium Chloride 545 ml @ 200 mls/hr Q8H IV 01/19/17 12:00 01/28/17 03:59 01/21/17 12:22 200 MLS/HR Ioversol (Optiray 320) 125 ml UD PRN IV 01/19/17 14:15 01/23/17 14:14 Ceftriaxone Sodium 2000 mg/ Dextrose 70 ml @ 100 mls/hr Q24H IV 01/19/17 16:00 01/29/17 15:59 01/20/17 16:54 100 MLS/HR Objective Vital Signs Date Time Temp Pulse Resp B/P (MAP) Pulse Ox O2 Delivery O2 Flow Rate FiO2 01/21/17 08:20 Room Air 01/21/17 07:18 36.6 73 20 106/65 (79) 100 Room Air 01/20/17 23:35 CPAP 01/20/17 22:50 74 95 01/20/17 22:30 37.2 88 17 123/69 (87) 99 Room Air 01/20/17 16:00 Room Air 01/20/17 15:34 37.0 91 18 133/72 (92) 99 Room Air Physical Exam General Appearance: WD/WN, no apparent distress Eyes: normal inspection, sclerae normal Respiratory/Chest: chest non-tender, lungs clear, normal breath sounds, no respiratory distress, no accessory muscle use Cardiovascular: regular rate, rhythm, no edema, no gallop Abdomen: normal bowel sounds, non tender, soft Extremities: normal range of motion, no calf tenderness Neurologic/Psychiatric: alert, normal mood/affect, oriented x 3 Skin: + pertinent finding (improvement of erythema at the proximal and distal margins. Tenderness over deep red 8cm Bullous located on the lateral aspect of the right lower extremity. Clean, dry, intact. No significant drainage from the wound. Erythema does not approach the ankle, and is below the knee superiorly.) Assessment and Plan 31 y/o male with recurrent right lower extremity erythema, edema and tenderness RLE cellulitis --> Improvement of erythema at both the proximal and distal margins of the cellulitis - Afebrile overnight - Blood cultures pending - No growth to date - Rocephin increased to 2 gm IV qd on 01/19 and vancomycin IV (reached therapeutic trough on 01/20) - Day #5 total of antibiotic treatment - Plan to transition patient to PO Bactrim when cultures return negative - Continue oxycodone 10 mg PO q6h prn pain - CT of the RLE with concerns of hemorrhagic bullae and concern for deep tissue infection in the RLE. IMPRESSION: 1. Right lower extremity edema and skin thickening consistent with the clinical history of cellulitis 2. No evidence of osteomyelitis 3. No evidence of deep soft tissue abscess 4. Right inguinal lymphadenopathy - General surgery consulted - Appreciate recs, no current indications for I&D/ intervention. Right inguinal lymphadenopathy - Doppler ultrasound RLE shows right inguinal LAD. This had also been demonstrated on RLE Doppler ultrasound on 06/24/15. Pt had also had RLE cellulitis at that time - Unclear if 2 separate incidences of reactive LAD secondary to cellulitis or has been persistent this whole time - Recommend patient follow up on this with PCP after cellulitis resolves to see if LAD still persists. If remains, may require biopsy due to concern for lymphoma Dizziness - Resolved at this time - Orthostatics negative - Possible from cellulitis involvement Iron panel checked - Ferritin elevated, Iron =18, TiBC 243, Transferrin 185, Trans sat % = 7, Ferritin =523.9 and likely elevated due to an acute phase reactant. - Low MCV (78) - Guaiac stool negative HTN -Stable - Continue losartan 50 mg PO qd Hypokalemia - resolved - Potassium 3.7 Obstructive Sleep Apnea - Continue CPAP DVT ppx: Enoxaparin 40 mg SC q24h Code Status: FULL Disposition: Awaiting negative cultures, transition from IV to PO antibiotics then discharge home Reviewed: Pt Seen/Exam by Me History Resident Physician Supervision Note: I interviewed and examined the patient. Discussed with Dr. Li and agree with findings and plan as documented in the note. Any exceptions or clarifications are listed here: Pt has no complaints, feels the leg looks better, less pain. Remains afebrile Vitals reviewed Morbidly obese, NAD, pleasant RRR no mgr CTAB no wcr Abs + BS soft NT ND Ext/Skin: RLE with significantly improved erythema in right medial and anterior thigh, also improving erythema rt lateral leg, with approx 8 cm oval bullous that is darkly erythematous but less so than previous, erythema receding from pen line distally as well 2+ DP pulses bilat, feet bilat with cracked and peeling skin between toes and crevices on plantar surfaces 31 yo male with a h/o morbid obesity, JAMAL on CPAP, previous cellulitis, HTN, here with RLE cellulitis and now with concern for RLE abscess formation. Doppler neg on admission for DVT. Had fevers, BCxs remain no growth, no leukocytosis, not septic. -continue Rocephin 2 gms IV qday and continue Vanco --> initial poor response to abx may have been due to underdosing -recommend continuing IV abx for 1-2 more days and then transitioning to Bactrim DS bid to cover for MRSA and Strep as we have no culture results to base treatment on-MRSA swab negative but given healthcare exposure, I think still needs MRSA coverage -Consult Gen Surgery appreciated-no surgery needed at this time -continue CPAP for JAMAL -Anemia of mixed chronic disease and some Fe deficiency perhaps--f/u with PCP as outpt Documented By: Josselyn Joseph Documented By: Josselyn Joseph
[2017-01-21 15:18] VITALS: BP 110/69; PULSE 81; TEMP 36.7; O2SAT 99
[2017-01-21] MEDS: CEFTRIAXONE SOD INJ 2,000 MG in DEXTROSE 5% 50ML 50 ML IV SCH (16:53)
[2017-01-21 17:00] VITALS: O2SAT 99
[2017-01-21] MEDS: ENOXAPARIN 40 MG/0.4 ML SYR SQ SCH (20:28)
[2017-01-21 23:39] VITALS: PULSE 72; O2SAT 98
[2017-01-22 00:26] VITALS: BP 133/74; PULSE 73; TEMP 36.7; O2SAT 98
[2017-01-22] MEDS: VANCOMYCIN INJ 2,250 MG in SODIUM CHLORIDE 0.9% 500ML 500 ML IV SCH ×2 (04:45→12:00)
[2017-01-22 07:26] VITALS: BP 118/73; PULSE 73; TEMP 36.6; O2SAT 98
[2017-01-22 07:32] LABS: BUN/CREATININE RATIO 11.5 (10-20); CALCIUM 8.3 mg/dl (8.5-10.1); CREATININE 0.74 mg/dl (0.60-1.40); POTASSIUM 3.9 mmol/L (3.5-5.1)
[2017-01-22 07:40] LABS: MEAN CELL VOLUME 81.4 fL (80-100); MEAN CORPUSCULAR HEMOGLOBIN 26.5 pg (25-34); MEAN CORPUSCULAR HGB CONC 32.6 g/dl (32-36); MEAN PLATELET VOLUME 7.9 fL (7.4-10.4); PLATELET COUNT 267 K/uL (130-400); WHITE BLOOD COUNT 8.81 K/uL (4.8-10.8)
[2017-01-22] MEDS: LOSARTAN POTASSIUM 50 MG TAB PO SCH (08:01)
[2017-01-22] MEDS ORDERED: SULF800T23 PO (12:20)
--- NOTE | 2017-01-22 12:41 | Discharge Instructions ---
Discharge Instructions Date of Service Jan 22, 2017. Admission Reason for Admission: Cellulitis Of Right Lower Extremity Discharge Discharge Diagnosis / Problem: Right Lower Extremity Cellulitis with Bullous Discharge Goals Goal(s): Decrease discomfort, Therapeutic intervention Activity Recommendations Activity Limitations: as noted below Lifting Limitations: gradually increase as tolerated Exercise/Sports Limitations: gradually increase as tolerated Shower/Bathe: no limitations Driving or Machine Use: no limitations . Instructions / Follow-Up Instructions / Follow-Up You were seen in the hospital for a skin infection of your left leg. You were treated with IV antibiotics and will be discharged on a 10 day course of oral antibiotics - Bactrim 800/160mg TAB - 1 tablet by mouth twice daily for 10 days (take your first dose tonight) - Tylenol 1000mg every 6 hours for as needed for pain. - Resume remaining home medications Return to the ER immediately for spreading redness, fevers, pus-like drainage, severe pain, worsening redness, or as needed. Follow-up with your primary care physician in 2 to 3 days for a recheck of your current condition. Current Hospital Diet Patient's current hospital diet: Regular Diet Discharge Diet Recommended Diet: Regular Diet Pending Studies Studies pending at discharge: no Laboratory Results Hemoglobin A1c Test 01/18/17 05:15 Range/Units Estimated Average Glucose 105 mg/dl Hemoglobin A1c 5.3 4.5-5.6 % Lipid Panel Test 12/12/16 08:03 Range/Units Triglycerides Level 88 0-150 mg/dl Cholesterol Level 129 0-200 mg/dl HDL Cholesterol 42 mg/dl Cholesterol/HDL Ratio 3.1 LDL Cholesterol, Calculated 69 mg/dl Medical Emergencies . Who to Call and When: Medical Emergencies: If at any time you feel your situation is an emergency, please call 911 immediately. . Non-Emergent Contact Non-Emergency issues call your: Primary Care Provider . . "Provider Documentation" section prepared by Uvaldo Li. . VTE Core Measure Inpt VTE Proph given/why not?: Enoxaparin (Lovenox)SQ
[2017-01-22 12:59] VITALS: BP 118/73; PULSE 73; TEMP 36.6; O2SAT 98
--- NOTE | 2017-01-22 23:02 | Discharge Summary ---
Discharge Summary Date of Service Jan 22, 2017. Discharge Summary Admission Date: Jan 19, 2017 at 15:29 Discharge Date: Jan 22, 2017 Discharge Disposition: Home Principal Diagnosis: Right lower extremity cellulitis with bullous Immunizations: Have You Had Influenza Vaccine: No History of Tetanus Vaccine?: Yes History of Pneumococcal: No History of Hepatitis B Vaccine: Yes Medication Reconciliation New Medications: Sulfa/Trimethoprim (Bactrim Ds 800MG/160MG) Tab 1 TAB PO BID for 10 Days, #6 TAB Continued Medications: Albuterol Hfa (Ventolin Hfa) 200 Puffs/69863 Mcg Aers 2-4 PUFFS INH Q6H PRN for SOB/Wheezing, #1 INHALER Ibuprofen Tab (Motrin) 800 Mg Tab 800 MG PO Q8H PRN for Pain, #30 TAB Losartan Potassium (Losartan Potassium) 50 Mg Tab 50 MG PO QAM Phentermine HCl (Phentermine HCl) 15 Mg Cap 15 MG PO QAM Discharge Exam Review of Systems: Constitutional: No fever, No chills, No weight loss Musculoskeletal: No joint pain, No calf pain Integumentary: + problem reported (Infection improving over right lower leg. Tenderness only over bulla over leg) Physical Exam: General Appearance: WD/WN, no apparent distress Respiratory/Chest: chest non-tender, lungs clear, normal breath sounds Cardiovascular: regular rate, rhythm, no edema, no gallop Abdomen / GI: normal bowel sounds, non tender, soft Extremities: no calf tenderness, no pedal edema, + pertinent finding (2+ pulses over PT and TD over right leg. Full sensation over right foot.) Neurologic/Psychiatric: alert, normal mood/affect, oriented x 3 Skin: + pertinent finding (Erythema over right leg imporving both proximally and distally, moving away from the margins. Bullous formation remains dark red and tender to palpation but nonfluctuant and firm.) Hospital Course 31 y/o male with recurrent right lower extremity erythema, edema and tenderness RLE cellulitis --> Improvement of erythema at both the proximal and distal margins of the cellulitis --> Initially presented with rash approaching groin and distally to the ankle with bullous formation over the lower leg - DISCHARGE HOME ON 10 DAY COURSE OF PO BACTRIM - Afebrile overnight - Blood cultures pending - No growth to date - Rocephin increased to 2 gm IV qd on 01/19 and vancomycin IV (reached therapeutic trough on 01/20) - Day #5 total of antibiotic treatment - Continue oxycodone 10 mg PO q6h prn pain - CT of the RLE with concerns of hemorrhagic bullae and concern for deep tissue infection in the RLE. IMPRESSION: 1. Right lower extremity edema and skin thickening consistent with the clinical history of cellulitis 2. No evidence of osteomyelitis 3. No evidence of deep soft tissue abscess 4. Right inguinal lymphadenopathy - General surgery consulted - Appreciate recs, no current indications for I&D/ intervention. Right inguinal lymphadenopathy - Doppler ultrasound RLE shows right inguinal LAD. This had also been demonstrated on RLE Doppler ultrasound on 06/24/15. Pt had also had RLE cellulitis at that time - Unclear if 2 separate incidences of reactive LAD secondary to cellulitis or has been persistent this whole time - Recommend patient follow up on this with PCP after cellulitis resolves to see if LAD still persists. If remains, may require biopsy due to concern for lymphoma Dizziness - Resolved at this time - Orthostatics negative - Possible from cellulitis involvement Iron panel checked - Ferritin elevated, Iron =18, TiBC 243, Transferrin 185, Trans sat % = 7, Ferritin =523.9 and likely elevated due to an acute phase reactant. - Low MCV (78) - Guaiac stool negative HTN -Stable - Continue losartan 50 mg PO qd Hypokalemia - resolved - Potassium 3.9 Obstructive Sleep Apnea - Continue CPAP DVT ppx: Enoxaparin 40 mg SC q24h Code Status: FULL Total Time Spent: Greater than 30 minutes This includes examination of the patient, discharge planning, medication reconciliation, and communication with other providers. Discharge Instructions Please refer to the electronic Patient Visit Report (Discharge Instructions) for additional information. Additional Copies To Johnathan Rudd M.D.
== END 2017-01-22 15:30 | disposition home or self-care (01) | DRG 603 ==
LOC: C.EDB 11:31 → C.4E 16:39 → ENRESERV 17:07 → OBSVTOIN 01-19 15:29
PROVIDERS: ADMIT Internal Medicine; ATTEND Family Medicine
DX: L03.115 Cellulitis of right lower limb (principal); Z68.41 Body mass index [BMI] 40.0-44.9, adult; G47.33 Obstructive sleep apnea (adult) (pediatric); I10 Essential (primary) hypertension; E87.6 Hypokalemia; R23.8 Other skin changes; J11.1 Influenza due to unidentified influenza virus with other respiratory manifestations; B34.9 Viral infection, unspecified; R59.1 Generalized enlarged lymph nodes; E66.01 Morbid (severe) obesity due to excess calories; D50.9 Iron deficiency anemia, unspecified

== ENCOUNTER → 2017-03-01 | Outpatient (CLI) | payer OTHER ==
[~2017-03-01] MED LIST changes: +CEPH500C PO; +IBUP-1459 PO; +ONDA4TAB10 SL; +SULF800T23 PO; +VNTHFA/IN INH
--- NOTE | 2017-03-01 13:08 | DIAGNOSTIC IMAGING REPORT ---
Right inguinal ultrasound CLINICAL HISTORY: RIGHT LOWER, INGUINAL LYMPHADENOPATHY COMPARISON STUDY: Right lower extremity CT 01/19/2017. Right leg venous Doppler 01/17/2017. FINDINGS: Persistent right inguinal lymphadenopathy. This is similar in size and appearance to the prior study. No fluid collections identified within the right groin. IMPRESSION: Persistent right inguinal lymphadenopathy. Electronically signed by: Julius Rader M.D. 03/01/2017 1:06 PM Dictated Date/Time: 03/01/2017 1:04 PM
== END | disposition home or self-care (01) ==
LOC: C.ULTRBC 12:32
PROVIDERS: ATTEND Physician Assistant Medical
DX: R59.0 Localized enlarged lymph nodes (principal)

== ENCOUNTER → 2017-03-19 | Outpatient (CLI) | payer OTHER ==
[~2017-03-19] MED LIST changes: -CEPH500C PO; -IBUP-1459 PO; -ONDA4TAB10 SL; -SULF800T23 PO
--- NOTE | 2017-03-19 10:47 | DIAGNOSTIC IMAGING REPORT ---
ULTRASOUND-GUIDED FINE-NEEDLE ASPIRATION OF A RIGHT INGUINAL LYMPH NODE HISTORY: ENLARGED R INGUINAL LYMPH NODE,REF BY US AND CT COMPARISON: Right groin ultrasound 03/01/2017. PROCEDURE: Written informed consent was obtained. The right groin was prepped and draped in the usual sterile fashion. 1% lidocaine was used for local anesthesia. A total of 2 passes using a 25-gauge needle and a 22-gauge needle were made through dominant right inguinal lymph node under ultrasound guidance. Specimens were given to the on-site pathologist who determined adequate tissue for diagnosis. The patient tolerated the procedure well. There were no immediate complications. IMPRESSION: Successful ultrasound-guided fine-needle aspiration of a right inguinal lymph node. Electronically signed by: Julius Rader M.D. 03/19/2017 10:45 AM Dictated Date/Time: 03/19/2017 10:44 AM
== END | disposition home or self-care (01) ==
LOC: C.ULTR 09:23
PROVIDERS: ATTEND Physician Assistant Medical
DX: R59.9 Enlarged lymph nodes, unspecified (principal)

== ENCOUNTER → 2017-03-21 | Outpatient (CLI) | payer OTHER ==
[~2017-03-21] VITALS: Ht 180.3 cm; Wt 143.5 kg
[2017-03-21 12:27] VITALS: BP 126/81; PULSE 77; Ht 180.3 cm; Wt 143.5 kg
== END | disposition home or self-care (01) ==
LOC: C.NEUR 09:37
PROVIDERS: ATTEND Internal Medicine Pulmonary Disease
DX: G47.33 Obstructive sleep apnea (adult) (pediatric) (principal)

== ENCOUNTER 2017-07-08 09:44 | Emergency (ER) | payer OTHER ==
[~2017-07-08] VITALS: Ht 180.3 cm; Wt 134.4 kg
[2017-07-08] MEDS ORDERED: SODIUM CHLORIDE 0.9% 1000ML 1,000 ML IV STA ×3 (10:19→12:26)
[2017-07-08] MEDS ORDERED: ACETAMINOPHEN 325 MG TAB PO STA (10:21)
[2017-07-08] MEDS ORDERED: ONDANSETRON INJ 2 MG/ML 2 ML VIAL IV STA (10:21)
[2017-07-08 10:37] LABS: BASO % 0.1 %; BASO ABS # 0.01 K/uL (0-0.2); EOS % 0.1 %; EOS ABS # 0.01 K/uL (0-0.5); HEMOGLOBIN 14.1 g/dL (14.0-18.0); IG# 0.04 K/uL (0.00-0.02); LYMPH % 3.9 %; LYMPH ABS # 0.51 K/uL (1.2-3.4); MEAN CELL VOLUME 77.7 fL (80-100); MEAN CORPUSCULAR HEMOGLOBIN 28.1 pg (25-34); MEAN CORPUSCULAR HGB CONC 36.2 g/dl (32-36); MEAN PLATELET VOLUME 7.7 fL (7.4-10.4); MONO % 4.2 %; MONO ABS # 0.55 K/uL (0.11-0.59); NEUT % 91.4 %; NEUT ABS # 11.96 K/uL (1.4-6.5); PLATELET COUNT 184 K/uL (130-400); RED CELL DISTRIBUTION WIDTH CV 14.2 % (11.5-14.5); RED CELL DISTRIBUTION WIDTH SD 40.1 fL (36.4-46.3); WHITE BLOOD COUNT 13.08 K/uL (4.8-10.8)
[2017-07-08 10:57] LABS: ALBUMIN 4.1 gm/dl (3.4-5.0); CALCIUM 8.3 mg/dl (8.5-10.1); CREATININE 1.23 mg/dl (0.60-1.40); POTASSIUM 3.5 mmol/L (3.5-5.1)
[2017-07-08 11:08] LABS: TOTAL PROTEIN 7.2 gm/dl (6.4-8.2)
[2017-07-08 11:08] LABS: INFLUENZA B ANTIGEN Neg for Influ B (NEG)
--- NOTE | 2017-07-08 11:18 | DIAGNOSTIC IMAGING REPORT ---
CHEST ONE VIEW PORTABLE CLINICAL HISTORY: Fever COMPARISON STUDY: 01/17/2017 FINDINGS: The cardiac and mediastinal contours are normal. There is no evidence of focal pulmonary consolidation. There is no evidence of failure. No pleural effusions are visualized.[ IMPRESSION: No active disease in the chest. Electronically signed by: Devon Cunningham M.D. 07/08/2017 11:17 AM Dictated Date/Time: 07/08/2017 11:17 AM
[2017-07-08 12:14] VITALS: TEMP 37.1
[2017-07-08] MEDS ORDERED: MAGNESIUM SULFATE 1GM / D5W 1 GM BAG IV STA (12:20)
[2017-07-08] MEDS ORDERED: PIPERACILLIN/TAZOBACTAM 4.5 GM/100ML D5W IV STA (12:29)
[2017-07-08 13:05] VITALS: O2SAT 97; Ht 180.3 cm; Wt 134.4 kg
[2017-07-08] MEDS ORDERED: D5NSS + 20MEQ KCL 1,000 ML IV SCH (14:15)
--- NOTE | 2017-07-08 14:34 | Medical Consult ---
Consultation Date of Consultation: July 08, 2017. Attending Physician: Reason for Consultation: Nausea, vomiting, diarrhea, fever. History of Present Illness 32 y/o M Hx JAMAL, HTN - pt woke from sleep this AM with nausea, vomiting, diarrhea and fever. This persisted for a few hours prompting him to visit the ER. The pt was tachycardic and borderline hypotensive on arrival. He received a total of 4 L IVF in the ER. His SBP stabilized and HR improved although remained elevated at approximately 100. The pt was able to tolerate a full meal in the ER following rehydration. Past Medical/Surgical History 1) JAMAL 2) Obese 3) HTN Family History Patient reports no known family medical history. 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 - social ETOH Smoking Status: Never Smoker Drug Use: none Marital Status: in relationship Occupation Status: employed Allergies Coded Allergies: No Known Allergies (Unverified , 01/17/17) Review of Systems Constitutional: + fever, + chills, No sweats Eyes: No worsening of vision, No eye pain ENT: No hearing loss, No unusual epistaxis, No nasal symptoms Respiratory: No cough, No sputum, No wheezing Cardiovascular: No chest pain, No orthopnea, No PND Abdomen: + nausea, + vomiting, + diarrhea, No pain Musculoskeletal: No joint pain Genitourinary - Male: No hematuria, No dysuria Neurologic: No memory loss, No paralysis, No weakness Psychiatric: No depression symptoms Endocrine: No fatigue Hematologic / Lymphatic: No abnormal bleeding/bruising Integumentary: No rash Allergic / Immunologic: No environmental allergies Physical Exam Date Time Temp Pulse Resp B/P (MAP) Pulse Ox O2 Delivery O2 Flow Rate FiO2 07/08/17 13:05 97 Room Air 07/08/17 12:14 37.1 120 20 95/52 97 Room Air 07/08/17 11:07 105 20 113/55 98 Room Air 07/08/17 09:52 38.0 136 22 119/62 95 Room Air General Appearance: WD/WN, no apparent distress Head: normocephalic Eyes: normal inspection ENT: normal ENT inspection, pharynx normal Neck: supple, no JVD Respiratory/Chest: chest non-tender, lungs clear, normal breath sounds Cardiovascular: regular rate, rhythm, no edema, no gallop Abdomen/GI: normal bowel sounds, non tender, soft Back: normal inspection, no CVA tenderness Extremities/Musculoskelatal: normal inspection, no calf tenderness Neurologic/Psych: physical therapist aide II-XII nml as tested, no motor/sensory deficits, alert, oriented x 3 Skin: normal color Laboratory Results Last 24 Hours Test 07/08/17 10:20 07/08/17 10:25 07/08/17 12:44 White Blood Count 13.08 K/uL Red Blood Count 5.02 M/uL Hemoglobin 14.1 g/dL Hematocrit 39.0 % Mean Corpuscular Volume 77.7 fL Mean Corpuscular Hemoglobin 28.1 pg Mean Corpuscular Hemoglobin Concent 36.2 g/dl Platelet Count 184 K/uL Mean Platelet Volume 7.7 fL Neutrophils (%) (Auto) 91.4 % Lymphocytes (%) (Auto) 3.9 % Monocytes (%) (Auto) 4.2 % Eosinophils (%) (Auto) 0.1 % Basophils (%) (Auto) 0.1 % Neutrophils # (Auto) 11.96 K/uL Lymphocytes # (Auto) 0.51 K/uL Monocytes # (Auto) 0.55 K/uL Eosinophils # (Auto) 0.01 K/uL Basophils # (Auto) 0.01 K/uL RDW Standard Deviation 40.1 fL RDW Coefficient of Variation 14.2 % Immature Granulocyte % (Auto) 0.3 % Immature Granulocyte # (Auto) 0.04 K/uL Sodium Level 135 mmol/L Potassium Level 3.5 mmol/L Chloride Level 105 mmol/L Carbon Dioxide Level 24 mmol/L Anion Gap 6.0 mmol/L Blood Urea Nitrogen 12 mg/dl Creatinine 1.23 mg/dl Est Creatinine Clear Calc Drug Dose 118.4 ml/min Estimated GFR () 88.2 Estimated GFR (Non- 76.1 BUN/Creatinine Ratio 9.7 Random Glucose 116 mg/dl Calcium Level 8.3 mg/dl Magnesium Level 1.5 mg/dl Total Bilirubin 0.7 mg/dl Aspartate Amino Transf (AST/SGOT) 17 U/L Alanine Aminotransferase (ALT/SGPT) 27 U/L Alkaline Phosphatase 46 U/L Total Protein 7.2 gm/dl Albumin 4.1 gm/dl Globulin 3.1 gm/dl Albumin/Globulin Ratio 1.3 Thyroid Stimulating Hormone (TSH) 0.928 uIu/ml Urine Color YELLOW Urine Appearance CLEAR Urine pH 5.0 Urine Specific [place] 1.021 Urine Protein NEG Urine Glucose (UA) NEG Urine Ketones NEG Urine Occult Blood NEG Urine Nitrite NEG Urine Bilirubin NEG Urine Urobilinogen NEG Urine Leukocyte Esterase NEG Influenza Type A Antigen Neg for Influ A Influenza Type B Antigen Neg for Influ B Lactic Acid Level 2.4 mmol/L Assessment & Plan 32 y/o M Hx JAMAL, HTN - pt woke from sleep this AM with nausea, vomiting, diarrhea and fever. This persisted for a few hours prompting him to visit the ER. The pt was tachycardic and borderline hypotensive on arrival. He received a total of 4 L IVF in the ER. His SBP stabilized and HR improved although remained elevated at approximately 100. The pt was able to tolerate a full meal in the ER following rehydration. The pt has improved following the above modalities. 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 He has not had a BM since arrival so that we were not able to check for C diff. He will do so as an outpt. He has been instructed to drink Gatorade or other electrolyte replacement drink until his illness resolves. He is also instructed to return to the hospital if his illness persists or worsens, if he has a persistent fever, lightheadedness or blood in his stool, or if he is unable to maintain adequate PO intake. Total time for this consult including review of labs, meds, records - discussion with pt and ER attending - 33 min
[2017-07-08 15:51] VITALS: BP 133/77; PULSE 102; O2SAT 99
--- NOTE | 2017-07-08 17:47 | EMERGENCY ROOM VISIT NOTE ---
History First contact with patient: 09:58 Chief Complaint: VOMITING Stated Complaint: VOMITING, FEVER, CHILLS, DIAHERRA Nursing Triage Summary: pt reports low abdominal pain with NV started this AM History of Present Illness The patient is a 32 year old male who presents to the Emergency Room via private vehicle accompanied by family with complaints of "vomiting, fever, chills, diarrhea". The patient states that he awoke around 530 with nausea, vomiting and a temperature of 102F. He has had chills. He has been feeling more dizzy but no syncopal event. He is vomited 6 times so far. These have been nonbloody and all of undigested food. He denies any active abdominal pain he just notes abdominal fullness. No constipation or diarrhea. No shortness of breath, chest pain, edema, trying anything to eat. He denies taking any medications today. His last bowel movement was last morning. It was normal and there was no blood. He states that he does have family members with similar symptoms. He denies any recent travel or acid reflux history. Review of Systems A complete 10-point Review of Systems was discussed with the patient, with pertinent positives and negatives listed in the History of Present Illness. All remaining Review of Systems questions can be considered negative unless otherwise specified. Past Medical/Surgical History Medical Problems: (1) Cellulitis of right lower extremity (2) Cellulitis RLE (3) HTN (hypertension) (4) Neutrophilic leukocytosis Family History Patient reports no known family medical history. Social History Smoking Status: Never Smoker Alcohol Use: occasionally Drug Use: none Marital Status: in relationship Occupation Status: employed Current/Historical Medications Scheduled Losartan Potassium (Losartan Potassium), 50 MG PO QAM Phentermine HCl (Phentermine HCl), 15 MG PO QAM Physical Exam Vital Signs Date Time Temp Pulse Resp B/P (MAP) Pulse Ox O2 Delivery O2 Flow Rate FiO2 07/08/17 15:51 102 20 133/77 99 Room Air 07/08/17 14:59 102 20 122/77 98 Room Air 07/08/17 13:05 97 Room Air 07/08/17 12:14 37.1 120 20 95/52 97 Room Air 07/08/17 11:07 105 20 113/55 98 Room Air 07/08/17 09:52 38.0 136 22 119/62 95 Room Air Physical Exam VITAL SIGNS - Vital signs and nursing notes were reviewed. Stable. Tachycardic. Afebrile. GENERAL -32-year-old male appearing male stated age who is in no acute distress. Communicates well with provider and answers questions appropriately. SKIN - Without rashes. No meningeal or petechial rashes. HEAD - NC/AT. EYES - PERRL with EOMI bilaterally. Sclera anicteric. EARS - No deformities of external structures noted on gross examination bilaterally. External auditory canals without discharge or otorrhea. Tympanic membranes pearly ragland without retraction or bulging. No fluid or purulent material visualized behind the TM. Handle of malleus, umbo, cone of light, pars tensa/flaccid all easily visualized. NOSE - Midline and without cyanosis. No epistaxis or purulent drainage noted. MOUTH/OROPHARYNX - Without perioral cyanosis. NECK - Neck with FROM. Supple to palpation. No lymphadenopathy noted. No nuchal rigidity. LUNGS - Chest wall symmetric without accessory muscle use, intercostals retractions, or central cyanosis. Normal vesicular breath sounds CTA B/L. No wheezes, rales, or rhonchi appreciated. CARDIAC - RRR with S1/S2. No murmur, rubs, or gallops appreciated. ABDOMEN - Abdominal contour normal without pulsations or visible masses. BS normoactive all four quadrants. No tenderness, palpable masses, hepatosplenomegaly, or ascites noted. EXTREMITIES - No clubbing or peripheral cyanosis. No pretibial edema present. +5 /5 strength noted in UE/LE bilaterally. NEUROLOGIC - Cranial nerves II through XII grossly intact. Sensory intact to light touch throughout. PSYCH - A&O, and cooperates fully with examiner. Pt is very pleasant and interacts well with examiner. Medical Decision & Procedures ER Provider Diagnostic Interpretation: CHEST ONE VIEW PORTABLE CLINICAL HISTORY: Fever COMPARISON STUDY: 01/17/2017 FINDINGS: The cardiac and mediastinal contours are normal. There is no evidence of focal pulmonary consolidation. There is no evidence of failure. No pleural effusions are visualized.[ IMPRESSION: No active disease in the chest. Electronically signed by: Devon Cunningham M.D. 07/08/2017 11:17 AM Dictated Date/Time: 07/08/2017 11:17 AM Laboratory Results 07/08/17 10:20 Red Blood Count 5.02, Mean Corpuscular Volume 77.7, Mean Corpuscular Hemoglobin 28.1, Mean Corpuscular Hemoglobin Concent 36.2, Mean Platelet Volume 7.7, Neutrophils (%) (Auto) 91.4, Lymphocytes (%) (Auto) 3.9, Monocytes (%) (Auto) 4.2, Eosinophils (%) (Auto) 0.1, Basophils (%) (Auto) 0.1, Neutrophils # (Auto) 11.96, Lymphocytes # (Auto) 0.51, Monocytes # (Auto) 0.55, Eosinophils # (Auto) 0.01, Basophils # (Auto) 0.01 07/08/17 10:20 Test 07/08/17 10:20 07/08/17 10:25 07/08/17 12:44 White Blood Count 13.08 K/uL (4.8-10.8) Red Blood Count 5.02 M/uL (4.7-6.1) Hemoglobin 14.1 g/dL (14.0-18.0) Hematocrit 39.0 % (42-52) Mean Corpuscular Volume 77.7 fL (80-100) Mean Corpuscular Hemoglobin 28.1 pg (25-34) Mean Corpuscular Hemoglobin Concent 36.2 g/dl (32-36) Platelet Count 184 K/uL (130-400) Mean Platelet Volume 7.7 fL (7.4-10.4) Neutrophils (%) (Auto) 91.4 % Lymphocytes (%) (Auto) 3.9 % Monocytes (%) (Auto) 4.2 % Eosinophils (%) (Auto) 0.1 % Basophils (%) (Auto) 0.1 % Neutrophils # (Auto) 11.96 K/uL (1.4-6.5) Lymphocytes # (Auto) 0.51 K/uL (1.2-3.4) Monocytes # (Auto) 0.55 K/uL (0.11-0.59) Eosinophils # (Auto) 0.01 K/uL (0-0.5) Basophils # (Auto) 0.01 K/uL (0-0.2) RDW Standard Deviation 40.1 fL (36.4-46.3) RDW Coefficient of Variation 14.2 % (11.5-14.5) Immature Granulocyte % (Auto) 0.3 % Immature Granulocyte # (Auto) 0.04 K/uL (0.00-0.02) Anion Gap 6.0 mmol/L (3-11) Est Creatinine Clear Calc Drug Dose 118.4 ml/min Estimated GFR () 88.2 Estimated GFR (Non- 76.1 BUN/Creatinine Ratio 9.7 (10-20) Calcium Level 8.3 mg/dl (8.5-10.1) Magnesium Level 1.5 mg/dl (1.8-2.4) Total Bilirubin 0.7 mg/dl (0.2-1) Aspartate Amino Transf (AST/SGOT) 17 U/L (15-37) Alanine Aminotransferase (ALT/SGPT) 27 U/L (12-78) Alkaline Phosphatase 46 U/L (45-117) Total Protein 7.2 gm/dl (6.4-8.2) Albumin 4.1 gm/dl (3.4-5.0) Globulin 3.1 gm/dl (2.5-4.0) Albumin/Globulin Ratio 1.3 (0.9-2) Thyroid Stimulating Hormone (TSH) 0.928 uIu/ml (0.300-4.500) Urine Color YELLOW Urine Appearance CLEAR (CLEAR) Urine pH 5.0 (4.5-7.5) Urine Specific [place] 1.021 (1.000-1.030) Urine Protein NEG (NEG) Urine Glucose (UA) NEG (NEG) Urine Ketones NEG (NEG) Urine Occult Blood NEG (NEG) Urine Nitrite NEG (NEG) Urine Bilirubin NEG (NEG) Urine Urobilinogen NEG (NEG) Urine Leukocyte Esterase NEG (NEG) Influenza Type A Antigen Neg for Influ A (NEG) Influenza Type B Antigen Neg for Influ B (NEG) Lactic Acid Level 2.4 mmol/L (0.4-2.0) Medications Administered Medications (Trade) Dose Ordered Sig/Leslee Route Start Time Stop Time Status Last Admin Dose Admin Sodium Chloride 1,000 ml @ 999 mls/hr Q1H1M STAT IV 07/08/17 10:19 07/08/17 11:19 DC 07/08/17 10:19 999 MLS/HR Ondansetron HCl (Zofran Inj) 4 mg NOW STAT IV 07/08/17 10:21 07/08/17 10:22 DC 07/08/17 11:04 4 MG Acetaminophen (Tylenol Tab) 650 mg NOW STAT PO 07/08/17 10:21 07/08/17 10:22 DC 07/08/17 11:04 650 MG Sodium Chloride 1,000 ml @ 999 mls/hr Q1H1M STAT IV 07/08/17 12:16 07/08/17 13:16 DC 07/08/17 12:16 999 MLS/HR Magnesium Sulfate (Magnesium Sulfate 1gm / D5W) 1 gm NOW STAT IV 07/08/17 12:20 07/08/17 12:21 DC 07/08/17 12:45 1 GM Sodium Chloride 1,000 ml @ 999 mls/hr Q1H1M STAT IV 07/08/17 12:26 07/08/17 13:26 DC 07/08/17 12:26 999 MLS/HR Piperacillin Sod/ Tazobactam Sod (Zosyn Iv) 4.5 gm NOW STAT IV 07/08/17 12:29 07/08/17 12:32 DC 07/08/17 12:44 4.5 GM Medical Decision Patient was seen and evaluated as above in room B7. Review was performed of nursing notes and vital signs. After obtaining a thorough history and physical examination the above work up was performed. He presents to us today with viral -like symptoms. He likely is experiencing a viral gastrointestinal illness. His vital signs however on arrival did reveal tachycardia and a fever. He was given Tylenol. He was reevaluated and was quite diaphoretic and had his vital signs retaken and he became hypotensive. He was then bolused with more normal saline. He was given a total of 3 L. He was given Zofran as well. He was given magnesium sulfate secondary to his hypomagnesemia. Chest x-ray negative. CBC reveals leukocytosis of 13.08. No concerning anemia. Metabolic panel reveals no evidence of kidney or liver failure. Magnesium 1.5. Lactic acid 2.4. Calcium low at 8.3. Urine negative. Flu negative. He is feeling much better after the fluids. Because of his persistent hypotension despite fluids I did elect to discuss the case with the hospitalist. Please refer to for the documentation regarding patient course. He was noted at the hospitalist was able to observe him here in the emergency department by providing him fluids as well as other medications and he was finally discharged home with an outpatient prescription for C. difficile. He was given a kit for this. The patient was educated upon management, had questions answered prior to discharge, and was discharged home in good condition by the hospitalist. Case was discussed with the attending physician. In the evaluation and treatment of this patient the following differential diagnoses were entertained: Viral gastrointestinal illness, C. difficile, sepsis , pneumonia, among others. Impression Primary Impression: Nausea, vomiting, and diarrhea Departure Information Dispostion Home / Self-Care Condition GOOD Forms HOME CARE DOCUMENTATION FORM, Work Instructions, Additional Instructions: Felipe Muniz was seen and evaluated in the emergency department on Jul 08 2017. Please excuse his absence from work today. Thank you, Gorge Camargo PA-C IMPORTANT VISIT INFORMATION Patient Instructions [facility] Work Instructions Additional Work Instructions: Felipe Muniz was seen and evaluated in the emergency department on July 08, 2017. Please excuse his absence from work today. Thank you, Gorge Camargo PA-C
== END 2017-07-08 16:28 | disposition home or self-care (01) ==
LOC: C.EDB 09:45
DX: R11.2 Nausea with vomiting, unspecified (principal); R19.7 Diarrhea, unspecified; Z79.899 Other long term (current) drug therapy

== ENCOUNTER → 2017-10-04 | Outpatient (CLI) | payer OTHER ==
[~2017-10-04] MED LIST changes: -IBUP-1451 PO; -VNTHFA/IN INH
--- NOTE | 2017-10-04 14:40 | DIAGNOSTIC IMAGING REPORT ---
RIGHT INGUINAL ULTRASOUND CLINICAL HISTORY: R59.0 Inguinal lymphadenopathy right inguinal COMPARISON STUDY: Right inguinal ultrasound 03/01/2017. FINDINGS: Right inguinal lymph nodes are again noted. Dominant inguinal lymph node measures 5.3 x 0.8 cm. This previously measured 5.6 x 1.2 cm. The cortex remains slightly thickened at 3 mm. There is normal fatty hilum. IMPRESSION: Slight decrease in size in the right inguinal lymph nodes as described above. Electronically signed by: Julius Rader M.D. 10/04/2017 2:38 PM Dictated Date/Time: 10/04/2017 2:36 PM
== END | disposition home or self-care (01) ==
LOC: C.ULTR 13:34
PROVIDERS: ATTEND Physician Assistant Medical
DX: R59.0 Localized enlarged lymph nodes (principal)

== ENCOUNTER 2017-10-17 14:00 | Emergency (ER) | payer OTHER ==
[~2017-10-17] VITALS: Ht 180.3 cm; Wt 133.4 kg
[~2017-10-17 14:00] MED LIST changes: -CZR50 PO
[2017-10-17 14:05] VITALS: Ht 180.3 cm; Wt 133.4 kg
[2017-10-17] MEDS ORDERED: SULFAMETHOXAZOLE/TRIMETHOPRIM DS 800/160MG TAB PO STA (14:23)
[2017-10-17] MEDS ORDERED: CEFAZOLIN SOD 1000MG/7.5 ML IV PUSH IV STA (14:23)
[2017-10-17] MEDS ORDERED: SODIUM CHLORIDE 0.9% 1000ML 1,000 ML IV STA (14:23)
[2017-10-17 15:07] LABS: BASO % 0.5 %; BASO ABS # 0.03 K/uL (0-0.2); EOS % 0.2 %; EOS ABS # 0.01 K/uL (0-0.5); HEMOGLOBIN 13.8 g/dL (14.0-18.0); IG# 0.02 K/uL (0.00-0.02); LYMPH % 17.6 %; LYMPH ABS # 1.17 K/uL (1.2-3.4); MEAN CELL VOLUME 78.3 fL (80-100); MEAN CORPUSCULAR HGB CONC 34.5 g/dl (32-36); MEAN PLATELET VOLUME 8.3 fL (7.4-10.4); MONO ABS # 0.53 K/uL (0.11-0.59); NEUT % 73.4 %; NEUT ABS # 4.89 K/uL (1.4-6.5); PLATELET COUNT 130 K/uL (130-400); RED CELL DISTRIBUTION WIDTH CV 14.2 % (11.5-14.5); RED CELL DISTRIBUTION WIDTH SD 40.1 fL (36.4-46.3); WHITE BLOOD COUNT 6.65 K/uL (4.8-10.8)
[2017-10-17] MEDS ORDERED: IBUP-1459 PO (15:24)
[2017-10-17 15:30] LABS: ALBUMIN 3.7 gm/dl (3.4-5.0); CALCIUM 8.5 mg/dl (8.5-10.1); CREATININE 1.01 mg/dl (0.60-1.40); POTASSIUM 3.8 mmol/L (3.5-5.1); TOTAL PROTEIN 7.7 gm/dl (6.4-8.2)
[2017-10-17] MEDS ORDERED: SULF800T23 PO (15:38)
[2017-10-17] MEDS ORDERED: CEPH500C PO (15:38)
[2017-10-17] MEDS ORDERED: ONDA4TAB10 SL (15:38)
[2017-10-17 15:52] VITALS: BP 124/82; PULSE 99; TEMP 37.3; O2SAT 98
[2017-10-17] MEDS ORDERED: CZR50 PO (16:40)
--- NOTE | 2017-10-17 20:48 | EMERGENCY ROOM VISIT NOTE ---
History Report prepared by Attila: Sid Ruiz Under the Supervision of: Dr. Ahsan Elmore M.D. First contact with patient: 14:11 Chief Complaint: ILLNESS Stated Complaint: DIZZYNESS,RASH History of Present Illness The patient is a 32 year old male who presents to the Emergency Room with complaints of a constant rash in his right lower leg beginning 2 days ago. The patient states that 3 days ago, he experienced chills when leaving for work. He reports that 2 days ago, his chills were worse, and he noticed a red bertha on right lower leg. He states that the area is tender. He reports a history of cellulitis occurring twice in his right leg, noting that he was given IV antibiotics for it. The patient denies MRSA. He reports a fever, with the highest recorded temperature being 102.8. He states that he vomited once last night and had a minor episode of diarrhea, and today had diarrhea 3 times that was "pure liquid." He denies abdominal pain, and states that his neck is slightly stiff causing him a mild headache. He denies any tick bites, recent antibiotics, foreign travel, or exposure to C-Diff. Source of History: patient Onset: 2 days ago Position: leg (right) Quality: other (rash) Timing: constant Associated Symptoms: + fevers (highest 102.8), + chills, + headache, + neck pain (stiffness), + vomiting, + diarrhea, No abdominal pain Review of Systems See HPI for pertinent positives & negatives. A total of 10 systems reviewed and were otherwise negative. Past Medical & Surgical Medical Problems: (1) Cellulitis of right lower extremity (2) Cellulitis RLE (3) HTN (hypertension) (4) Neutrophilic leukocytosis Family History Patient reports no known family medical history. Social History Smoking Status: Never Smoker Alcohol Use: occasionally Drug Use: none Marital Status: in relationship Occupation Status: employed Current/Historical Medications Scheduled Cephalexin Monohydrate (Keflex), 500 MG PO QID Losartan Potassium (Losartan Potassium), 50 MG PO QAM Sulfa/Trimethoprim (Bactrim Ds 800MG/160MG), 1 TAB PO BID Scheduled PRN Ibuprofen (Motrin), 400 MG PO Q6H PRN for Pain Ondasetron Odt (Zofran Odt), 4 MG SL Q6H PRN for Nausea or Vomiting Allergies Coded Allergies: No Known Allergies (Unverified , 01/17/17) Physical Exam Vital Signs Date Time Temp Pulse Resp B/P (MAP) Pulse Ox O2 Delivery O2 Flow Rate FiO2 10/17/17 15:52 37.3 99 18 124/82 98 10/17/17 14:05 37.3 103 18 121/76 98 Room Air Physical Exam Constitutional: Vital signs reviewed. Eyes: Pupils are equal round reactive to light. Conjunctiva are noninjected. ENT: Pharynx is clear without erythema or exudate. Mucous membranes are moist. Neck supple without meningeal signs. Respiratory: Clear to auscultation bilaterally. Breath sounds are equal bilaterally. Cardiovascular: Regular rate and rhythm. No rubs or gallops. GI: Soft, nondistended and nontender. Bowel sounds are present. Musculoskeletal: Erythema, increased warmth, and tenderness to anterior region of the right lower leg with old scarring to the lateral portion superiorly. Red streaking of the inner right thigh. Mildly enlarged and tender right inguinal lymph nodes. Normal distal pulse Integumentary: No cyanosis. As above. Neurological: The patient is awake and alert. No focal deficits. Psychiatric: Normal affect. Medical Decision & Procedures Laboratory Results 10/17/17 14:57 Red Blood Count 5.11, Mean Corpuscular Volume 78.3, Mean Corpuscular Hemoglobin 27.0, Mean Corpuscular Hemoglobin Concent 34.5, Mean Platelet Volume 8.3, Neutrophils (%) (Auto) 73.4, Lymphocytes (%) (Auto) 17.6, Monocytes (%) (Auto) 8.0, Eosinophils (%) (Auto) 0.2, Basophils (%) (Auto) 0.5, Neutrophils # (Auto) 4.89, Lymphocytes # (Auto) 1.17, Monocytes # (Auto) 0.53, Eosinophils # (Auto) 0.01, Basophils # (Auto) 0.03 10/17/17 14:57 Test 10/17/17 14:57 White Blood Count 6.65 K/uL (4.8-10.8) Red Blood Count 5.11 M/uL (4.7-6.1) Hemoglobin 13.8 g/dL (14.0-18.0) Hematocrit 40.0 % (42-52) Mean Corpuscular Volume 78.3 fL (80-100) Mean Corpuscular Hemoglobin 27.0 pg (25-34) Mean Corpuscular Hemoglobin Concent 34.5 g/dl (32-36) Platelet Count 130 K/uL (130-400) Mean Platelet Volume 8.3 fL (7.4-10.4) Neutrophils (%) (Auto) 73.4 % Lymphocytes (%) (Auto) 17.6 % Monocytes (%) (Auto) 8.0 % Eosinophils (%) (Auto) 0.2 % Basophils (%) (Auto) 0.5 % Neutrophils # (Auto) 4.89 K/uL (1.4-6.5) Lymphocytes # (Auto) 1.17 K/uL (1.2-3.4) Monocytes # (Auto) 0.53 K/uL (0.11-0.59) Eosinophils # (Auto) 0.01 K/uL (0-0.5) Basophils # (Auto) 0.03 K/uL (0-0.2) RDW Standard Deviation 40.1 fL (36.4-46.3) RDW Coefficient of Variation 14.2 % (11.5-14.5) Immature Granulocyte % (Auto) 0.3 % Immature Granulocyte # (Auto) 0.02 K/uL (0.00-0.02) Anion Gap 6.0 mmol/L (3-11) Est Creatinine Clear Calc Drug Dose 143.6 ml/min Estimated GFR () 112.0 Estimated GFR (Non- 96.6 BUN/Creatinine Ratio 10.6 (10-20) Calcium Level 8.5 mg/dl (8.5-10.1) Total Bilirubin 1.0 mg/dl (0.2-1) Direct Bilirubin 0.3 mg/dl (0-0.2) Aspartate Amino Transf (AST/SGOT) 20 U/L (15-37) Alanine Aminotransferase (ALT/SGPT) 26 U/L (12-78) Alkaline Phosphatase 49 U/L (45-117) Total Protein 7.7 gm/dl (6.4-8.2) Albumin 3.7 gm/dl (3.4-5.0) Laboratory results as reviewed by me. Medications Administered Medications (Trade) Dose Ordered Sig/Leslee Route Start Time Stop Time Status Last Admin Dose Admin Cefazolin Sodium (Cefazolin 1000mg Iv Push) 1,000 mg NOW STAT IV 10/17/17 14:23 10/17/17 14:25 DC 10/17/17 15:31 1,000 MG Trimethoprim/ Sulfamethoxazole (Septra Ds 800/ 160MG Tab) 1 tab NOW STAT PO 10/17/17 14:23 10/17/17 14:25 DC 10/17/17 15:32 1 TAB Sodium Chloride 1,000 ml @ 999 mls/hr Q1H1M STAT IV 10/17/17 14:23 10/17/17 15:29 DC 10/17/17 15:32 999 MLS/HR ED Course 1414: The patient was evaluated in room B8. A complete history and physical exam was performed. 1423: Ordered Sodium Chloride 1000 ml @ 999 mls/hr IV, Trimethoprim/ Sulfamethoxazole 1 tab PO, Cefazolin Sodium 1000 mg IV 1540: I discussed tonight's findings with the patient. He verbalized agreement of the treatment plan. The patient was discharged home. Medical Decision This is a 32-year-old male who presents with fever, vomiting diarrhea and redness to his leg. Differential diagnosis includes cellulitis, lymphangitis, MRSA, foodborne illness, gastroenteritis, dehydration. I did perform a limited focused review of portions of the patient's old chart on the electronic medical record. The patient was admitted in January for cellulitis to the right leg. He was treated with Rocephin and vancomycin, and was discharged on Bactrim. Cultures were all negative, with a negative swab for MRSA. I did evaluate the patient as noted above. Patient has cellulitis to his right lower extremity with some streaking to the inner thigh on the right side with chronic inguinal lymphadenopathy. He does have a prior history of cellulitis to the right leg. He also complains of vomiting and diarrhea. IV access was established. I did treat patient with normal saline IV. He was also given Ancef 1 g IV and Bactrim after blood cultures were obtained. I did order and review the patient's blood work as noted in the electronic medical record. There is no elevation of his white count or left shift. I did discuss the test results with patient. He was discharged with a prescription for Keflex, Zofran and Bactrim. He will follow-up with his regular physician. Medication Reconcilliation Current Medication List: was personally reviewed by me Blood Pressure Screening Patient's blood pressure: Normal blood pressure Blood pressure disposition: Did not require urgent referral Impression Primary Impression: Cellulitis of right lower extremity Additional Impressions: Lymphangitis Vomiting and diarrhea Scribe Attestation The scribe's documentation has been prepared under my direct and personally reviewed by me in its entirety. I confirm that the note above accurately reflects all work, treatment, procedures, and medical decision making performed by me. Departure Information Dispostion Home / Self-Care Prescriptions Ondasetron Odt (ZOFRAN ODT) 4 Mg Tab 4 MG SL Q6H Y for Nausea or Vomiting, #6 TAB Prov: Ahsan Elmore M.D. 10/17/17 Cephalexin Monohydrate (Keflex) 500 Mg Cap 500 MG PO QID for 10 Days, #40 CAP Prov: Ahsan Elmore M.D. 10/17/17 Sulfa/Trimethoprim (Bactrim Ds 800MG/160MG) Tab 1 TAB PO BID for 10 Days, #20 TAB Prov: Ahsan Elmore M.D. 10/17/17 Referrals Johnathan Rudd M.D. (PCP) Forms HOME CARE DOCUMENTATION FORM, IMPORTANT VISIT INFORMATION, WORK / SCHOOL INSTRUCTIONS Patient Instructions [facility] Additional Instructions You have been examined and treated today on an emergency basis only. This is not a substitute for, or an effort to provide, complete comprehensive medical care. It is impossible to recognize and treat all injuries or illnesses in a single emergency department visit. It is therefore important that you follow up closely with your physicianin 2-3 days. Call as soon as possible for an appointment. Have your doctor recheck your potassium because you are on Bactrim and it interacts with your blood pressure medicine. Return for worsening symptoms or if you develop or any other concerning symptoms. Problem Qualifiers
== END 2017-10-17 15:52 | disposition home or self-care (01) ==
LOC: C.EDB 14:02
DX: L03.115 Cellulitis of right lower limb (principal); R11.10 Vomiting, unspecified; R19.7 Diarrhea, unspecified